=== PATIENT | female | born 1935 | race Caucasian/White ===

== ENCOUNTER 2018-05-22 21:51 | Emergency (ER) | payer MEDICARE, MEDICAID ==
[~2018-05-22] VITALS: Ht 152.4 cm; Wt 59.0 kg
[2018-05-22 21:56] VITALS: BP_SYST 204
[2018-05-22 23:00] VITALS: BP_SYST 188
== END 2018-05-22 23:00 | disposition home or self-care (01) ==
LOC: SED 21:51
DX: I10 Essential (primary) hypertension (principal); E11.9 Type 2 diabetes mellitus without complications; R42 Dizziness and giddiness
CPT/HCPCS: 99283

== ENCOUNTER 2018-05-25 15:05 | Emergency (ER) | payer MEDICARE, MEDICAID ==
[~2018-05-25] VITALS: Ht 149.9 cm; Wt 63.5 kg
[2018-05-25 15:08] VITALS: BP_SYST 194
[2018-05-25] MEDS ORDERED: cloNIDine HCL 0.1 MG TABLET PO ONE (16:00)
[2018-05-25 16:49] VITALS: BP_SYST 150
== END 2018-05-25 16:49 | disposition home or self-care (01) ==
LOC: SED 15:05
DX: I10 Essential (primary) hypertension (principal); E11.9 Type 2 diabetes mellitus without complications
CPT/HCPCS: 99283

== ENCOUNTER 2018-07-15 11:03 | Inpatient (IN) | payer MEDICAID, MEDICARE ==
[~2018-07-15] VITALS: Ht 160 cm; Wt 60.8 kg
[2018-07-15 11:05] VITALS: BP_SYST 169
[2018-07-15 12:00] LABS: BILIRUBIN,URINE NEGATIVE (NEGATIVE); BLOOD, URINE NEGATIVE (NEGATIVE); CLARITY/URINE SL HAZY (CLEAR); COLOR,URINE YELLOW (YELLOW); GLUCOSE,URINE NEGATIVE (NEGATIVE); KETONES,URINE 1+ (NEGATIVE); LEUKOCYTE ESTERASE ,URINE NEGATIVE (NEGATIVE); NITRITE, URINE NEGATIVE (NEGATIVE); PROTEIN URINE TRACE (NEGATIVE); UROBILINOGEN,URINE 0.2 (0.2-1.0)
[2018-07-15 12:11] LABS: BASOPHILS % (AUTO) 0.3 % (0.0-2.0); EOSINOPHILS # (AUTO) 0.1 K/uL (0.0-0.4); EOSINOPHILS % (AUTO) 0.9 % (0.0-4.0); HEMATOCRIT 39.5 % (36-48); HEMOGLOBIN 13.2 g/dL (12.0-16.0); LYMPHOCYTES # (AUTO) 1.3 K/uL (1.0-5.5); LYMPHOCYTES % (AUTO) 20.9 % (20.5-51.5); MEAN CORPUSCULAR HEMOGLOBIN 31 pg (27-31); MEAN CORPUSCULAR HGB CONC 33 % (32-36); MEAN CORPUSCULAR VOLUME 93 fL (79.0-98.0); MONOCYTES # (AUTO) 0.4 K/uL (0.0-1.0); MONOCYTES % (AUTO) 6.5 % (1.7-9.3); NEUTROPHILS # (AUTO) 4.6 K/uL (1.8-7.7); NEUTROPHILS % (AUTO) 71.4 % (40.0-70.0); PLATELET COUNT (AUTO) 220 K/uL (130-430); RED BLOOD CELL COUNT(AUTO) 4.23 MIL/uL (4.2-6.2); RED CELL DISTRIBUTION WIDTH 12.5 % (9.0-15.0); WHITE BLOOD COUNT (AUTO) 6.4 K/uL (4.8-10.8)
[2018-07-15 12:12] LABS: BACTERIA,URINE RARE /HPF (None Seen); RBC,URINE NONE SEEN /HPF (0-3); WBC,URINE 0-3 /HPF (0-3)
[2018-07-15 12:13] LABS: ANION GAP 11 (5-15); CHLORIDE 100 mmol/L (98-107); CREATININE 1.03 mg/dL (0.55-1.30); GLUCOSE 182 mg/dL (70-99); POTASSIUM 3.4 mmol/L (3.5-5.1); SODIUM SERUM 135 mmol/L (136-145); UREA NITROGEN, BLOOD 18 mg/dL (8-21)
[2018-07-15 12:18] LABS: ALANINE AMINOTRANSFERASE 19 U/L (12-78); ALBUMIN 3.8 g/dL (3.4-4.8); ASPARTATE AMINOTRANSFERASE 21 U/L (10-37); PROTHROMBIN TIME 9.9 SECS (9.5-12.5); TOTAL BILIRUBIN 0.6 mg/dL (0.0-1.0)
[2018-07-15] MEDS ORDERED: ASPIRIN 325 MG TABLET PO ONE (13:15)
[2018-07-15] MEDS ORDERED: LISI40TA4 PO (13:52)
[2018-07-15] MEDS ORDERED: SITA1TAB6 PO (13:52)
[2018-07-15 14:55] VITALS: BP_SYST 155
[2018-07-15] MEDS: KCL 20 mEq in 0.45% NS 1000 mL 1,000 ML IV SCH (15:30)
[2018-07-15 16:00] VITALS: BP_SYST 145
[2018-07-15] MEDS ORDERED: INSULIN REGULAR, HUMAN 100 UNITS/ML, 10 ML VIAL (novoLIN R) SUBCUT PRN (18:00)
[2018-07-15] MEDS ORDERED: D5W 1,000 ML IV PRN (20:00)
[2018-07-15] MEDS ORDERED: DEXTROSE 50%-WATER 50 ML DISP.SYRIN IVP PRN (20:00)
[2018-07-15] MEDS ORDERED: GLUCOSE 15 GM GEL (in 37.5 GM TUBE) PO PRN (20:00)
[2018-07-15 20:46] VITALS: BP_SYST 177
[2018-07-15] MEDS: GABAPENTIN 100 MG CAPSULE PO SCH (20:50)
[2018-07-15] MEDS: INSULIN REGULAR, HUMAN 100 UNITS/ML, 10 ML VIAL (novoLIN R) SUBCUT PRN (20:57)
[2018-07-16] VITALS: BP_SYST 163
[2018-07-16 02:41] VITALS: BP_SYST 165
[2018-07-16] MEDS: KCL 20 mEq in 0.45% NS 1000 mL 1,000 ML IV SCH ×2 (03:46→17:22)
[2018-07-16] MEDS: KETOROLAC TROMETHAMINE 15 MG VIAL IVP PRN ×2 (06:14→17:53)
[2018-07-16] MEDS: INSULIN REGULAR, HUMAN 100 UNITS/ML, 10 ML VIAL (novoLIN R) SUBCUT PRN ×4 (06:21→21:19)
[2018-07-16 08:36] VITALS: BP_SYST 162
[2018-07-16] MEDS: GABAPENTIN 100 MG CAPSULE PO SCH ×2 (08:39→21:14)
[2018-07-16] MEDS: ASPIRIN 81 MG TAB.CHEW PO SCH (08:39)
[2018-07-16] MEDS: LISINOPRIL 20 MG TABLET PO SCH (08:39)
[2018-07-16] MEDS: ENOXAPARIN SODIUM 40 MG/0.4 ML SYRINGE SUBCUT SCH (08:40)
[2018-07-16 13:03] VITALS: BP_SYST 159
[2018-07-16 17:14] VITALS: BP_SYST 164
[2018-07-16] MEDS ORDERED: CELECOXIB 100 MG CAPSULE PO ONE (19:42)
[2018-07-16 21:09] VITALS: BP_SYST 166
[2018-07-17] MEDS: KCL 20 mEq in 0.45% NS 1000 mL 1,000 ML IV SCH ×2 (06:00→21:25)
[2018-07-17] MEDS: INSULIN REGULAR, HUMAN 100 UNITS/ML, 10 ML VIAL (novoLIN R) SUBCUT PRN ×4 (06:15→21:49)
[2018-07-17] MEDS: LISINOPRIL 20 MG TABLET PO SCH (09:42)
[2018-07-17] MEDS: ASPIRIN 81 MG TAB.CHEW PO SCH (09:42)
[2018-07-17] MEDS: GABAPENTIN 100 MG CAPSULE PO SCH ×2 (09:42→21:21)
[2018-07-17] MEDS: CELECOXIB 100 MG CAPSULE PO SCH (09:42)
[2018-07-17] MEDS: ENOXAPARIN SODIUM 40 MG/0.4 ML SYRINGE SUBCUT SCH (09:43)
[2018-07-17 12:26] VITALS: BP_SYST 162
[2018-07-17 16:26] VITALS: BP_SYST 167
[2018-07-17] MEDS ORDERED: SENNOSIDES 8.6 MG TABLET PO ONE (19:45)
[2018-07-17 20:10] VITALS: BP_SYST 166
[2018-07-17] MEDS: cloNIDine HCL 0.1 MG TABLET PO PRN (21:25)
[2018-07-18 00:04] VITALS: BP_SYST 146
[2018-07-18] MEDS: INSULIN REGULAR, HUMAN 100 UNITS/ML, 10 ML VIAL (novoLIN R) SUBCUT PRN ×4 (06:51→21:11)
[2018-07-18 08:00] VITALS: BP_SYST 151
[2018-07-18] MEDS: ASPIRIN 81 MG TAB.CHEW PO SCH (10:14)
[2018-07-18] MEDS: LISINOPRIL 20 MG TABLET PO SCH (10:14)
[2018-07-18] MEDS: CELECOXIB 100 MG CAPSULE PO SCH (10:14)
[2018-07-18] MEDS: GABAPENTIN 100 MG CAPSULE PO SCH ×2 (10:15→20:58)
[2018-07-18] MEDS: ENOXAPARIN SODIUM 40 MG/0.4 ML SYRINGE SUBCUT SCH (10:16)
[2018-07-18] MEDS: KCL 20 mEq in 0.45% NS 1000 mL 1,000 ML IV SCH (10:23)
[2018-07-18 12:02] VITALS: BP_SYST 155
[2018-07-18 16:02] VITALS: BP_SYST 123
[2018-07-18 20:00] VITALS: BP_SYST 178
[2018-07-18] MEDS: cloNIDine HCL 0.1 MG TABLET PO PRN (20:58)
[2018-07-18] MEDS: traMADol HCL HCL 50 MG TABLET (ULTRAM) PO PRN (21:03)
[2018-07-19] MEDS: KCL 20 mEq in 0.45% NS 1000 mL 1,000 ML IV SCH ×2 (00:41→14:08)
[2018-07-19 02:45] VITALS: BP_SYST 149
[2018-07-19] MEDS: INSULIN REGULAR, HUMAN 100 UNITS/ML, 10 ML VIAL (novoLIN R) SUBCUT PRN ×3 (06:25→20:51)
[2018-07-19 08:00] VITALS: BP_SYST 146
[2018-07-19] MEDS: CELECOXIB 100 MG CAPSULE PO SCH (08:56)
[2018-07-19] MEDS: GABAPENTIN 100 MG CAPSULE PO SCH ×2 (08:56→20:40)
[2018-07-19] MEDS: ASPIRIN 81 MG TAB.CHEW PO SCH (08:57)
[2018-07-19] MEDS: LISINOPRIL 20 MG TABLET PO SCH (08:57)
[2018-07-19] MEDS: ENOXAPARIN SODIUM 40 MG/0.4 ML SYRINGE SUBCUT SCH (08:58)
[2018-07-19 11:20] VITALS: BP_SYST 161
[2018-07-19 16:35] VITALS: BP_SYST 142
[2018-07-19 19:51] VITALS: BP_SYST 212
[2018-07-19] MEDS: traMADol HCL HCL 50 MG TABLET (ULTRAM) PO PRN (20:57)
[2018-07-19] MEDS: cloNIDine HCL 0.1 MG TABLET PO PRN (21:00)
[2018-07-20 01:35] VITALS: BP_SYST 160
[2018-07-20] MEDS: KCL 20 mEq in 0.45% NS 1000 mL 1,000 ML IV SCH ×2 (04:54→17:04)
[2018-07-20] MEDS: INSULIN REGULAR, HUMAN 100 UNITS/ML, 10 ML VIAL (novoLIN R) SUBCUT PRN ×3 (06:54→20:56)
[2018-07-20 07:30] VITALS: BP_SYST 142
[2018-07-20 07:46] LABS: ANION GAP 10 (5-15); CALCIUM 9.2 mg/dL (8.4-11.0); CHLORIDE 104 mmol/L (98-107); CREATININE 0.94 mg/dL (0.55-1.30); GLUCOSE 180 mg/dL (70-99); POTASSIUM 4.1 mmol/L (3.5-5.1); SODIUM SERUM 137 mmol/L (136-145); UREA NITROGEN, BLOOD 19 mg/dL (8-21)
[2018-07-20 07:48] LABS: BASOPHILS % (AUTO) 0.6 % (0.0-2.0); EOSINOPHILS # (AUTO) 0.3 K/uL (0.0-0.4); EOSINOPHILS % (AUTO) 4.4 % (0.0-4.0); HEMATOCRIT 33.3 % (36-48); HEMOGLOBIN 11.5 g/dL (12.0-16.0); LYMPHOCYTES # (AUTO) 1.5 K/uL (1.0-5.5); LYMPHOCYTES % (AUTO) 24.1 % (20.5-51.5); MEAN CORPUSCULAR HEMOGLOBIN 34 pg (27-31); MEAN CORPUSCULAR HGB CONC 35 % (32-36); MEAN CORPUSCULAR VOLUME 97 fL (79.0-98.0); MONOCYTES # (AUTO) 0.4 K/uL (0.0-1.0); MONOCYTES % (AUTO) 7.2 % (1.7-9.3); NEUTROPHILS # (AUTO) 3.9 K/uL (1.8-7.7); NEUTROPHILS % (AUTO) 63.7 % (40.0-70.0); PLATELET COUNT (AUTO) 193 K/uL (130-430); RED BLOOD CELL COUNT(AUTO) 3.43 MIL/uL (4.2-6.2); RED CELL DISTRIBUTION WIDTH 12.3 % (9.0-15.0); WHITE BLOOD COUNT (AUTO) 6.1 K/uL (4.8-10.8)
[2018-07-20] MEDS: CELECOXIB 100 MG CAPSULE PO SCH (08:08)
[2018-07-20] MEDS: LISINOPRIL 20 MG TABLET PO SCH (08:10)
[2018-07-20] MEDS: GABAPENTIN 100 MG CAPSULE PO SCH ×2 (08:11→20:47)
[2018-07-20] MEDS: ASPIRIN 81 MG TAB.CHEW PO SCH (08:11)
[2018-07-20] MEDS: ENOXAPARIN SODIUM 40 MG/0.4 ML SYRINGE SUBCUT SCH (08:12)
[2018-07-20 12:16] VITALS: BP_SYST 138
[2018-07-20 16:05] VITALS: BP_SYST 147
[2018-07-20 19:45] VITALS: BP_SYST 187
[2018-07-20] MEDS: traMADol HCL HCL 50 MG TABLET (ULTRAM) PO PRN (20:48)
[2018-07-21] VITALS (7 sets, daily range): BP systolic 120–162
[2018-07-21] MEDS: KCL 20 mEq in 0.45% NS 1000 mL 1,000 ML IV SCH (06:20)
[2018-07-21] MEDS: INSULIN REGULAR, HUMAN 100 UNITS/ML, 10 ML VIAL (novoLIN R) SUBCUT PRN ×4 (06:25→21:25)
[2018-07-21] MEDS: GABAPENTIN 100 MG CAPSULE PO SCH ×2 (09:05→21:24)
[2018-07-21] MEDS: LISINOPRIL 20 MG TABLET PO SCH (09:05)
[2018-07-21] MEDS: CELECOXIB 100 MG CAPSULE PO SCH (09:05)
[2018-07-21] MEDS: ASPIRIN 81 MG TAB.CHEW PO SCH (09:05)
[2018-07-21] MEDS: ENOXAPARIN SODIUM 40 MG/0.4 ML SYRINGE SUBCUT SCH (09:06)
[2018-07-21] MEDS: cloNIDine HCL 0.1 MG TABLET PO PRN (21:24)
[2018-07-21] MEDS: NORMAL SALINE 5 ML DISP.SYRIN IVF SCH ×2 (22:00→23:17)
[2018-07-22] VITALS: BP_SYST 153
[2018-07-22] MEDS: NORMAL SALINE 5 ML DISP.SYRIN IVF SCH ×3 (06:05→22:00)
[2018-07-22] MEDS: INSULIN REGULAR, HUMAN 100 UNITS/ML, 10 ML VIAL (novoLIN R) SUBCUT PRN ×4 (06:08→20:44)
[2018-07-22 08:35] VITALS: BP_SYST 133
[2018-07-22] MEDS: GABAPENTIN 100 MG CAPSULE PO SCH ×2 (08:40→20:42)
[2018-07-22] MEDS: LISINOPRIL 20 MG TABLET PO SCH (08:40)
[2018-07-22] MEDS: CELECOXIB 100 MG CAPSULE PO SCH (08:41)
[2018-07-22] MEDS: ASPIRIN 81 MG TAB.CHEW PO SCH (08:41)
[2018-07-22] MEDS: ENOXAPARIN SODIUM 40 MG/0.4 ML SYRINGE SUBCUT SCH (08:41)
[2018-07-22] MEDS: cloNIDine HCL 0.1 MG TABLET PO PRN (11:25)
[2018-07-22 12:01] VITALS: BP_SYST 164
[2018-07-22 16:42] VITALS: BP_SYST 171
[2018-07-23 00:34] VITALS: BP_SYST 161
[2018-07-23] MEDS: NORMAL SALINE 5 ML DISP.SYRIN IVF SCH ×2 (05:26→13:57)
[2018-07-23] MEDS: INSULIN REGULAR, HUMAN 100 UNITS/ML, 10 ML VIAL (novoLIN R) SUBCUT PRN ×2 (06:04→11:40)
[2018-07-23] MEDS: CELECOXIB 100 MG CAPSULE PO SCH (08:35)
[2018-07-23] MEDS: LISINOPRIL 20 MG TABLET PO SCH (08:36)
[2018-07-23] MEDS: GABAPENTIN 100 MG CAPSULE PO SCH (08:36)
[2018-07-23] MEDS: ASPIRIN 81 MG TAB.CHEW PO SCH (08:36)
[2018-07-23] MEDS: ENOXAPARIN SODIUM 40 MG/0.4 ML SYRINGE SUBCUT SCH (08:37)
[2018-07-23 08:43] VITALS: BP_SYST 141
[2018-07-23 12:00] VITALS: BP_SYST 164
[2018-07-23] MEDS: cloNIDine HCL 0.1 MG TABLET PO PRN (12:16)
[2018-07-23 15:38] VITALS: BP_SYST 151
[2018-07-23 17:35] VITALS: BP_SYST 151
== END 2018-07-23 18:47 | DRG 347 ==
LOC: SED 11:03 → STU 13:34 → SMU 07-17 19:11
PROVIDERS: ADMIT Family Medicine; ATTEND Family Medicine
DX: M48.02 Spinal stenosis, cervical region (principal); E11.42 Type 2 diabetes mellitus with diabetic polyneuropathy; K57.90 Diverticulosis of intestine, part unspecified, without perforation or abscess without bleeding; M19.90 Unspecified osteoarthritis, unspecified site; M50.321 Other cervical disc degeneration at C4-C5 level; M50.322 Other cervical disc degeneration at C5-C6 level; M50.31 Other cervical disc degeneration, high cervical region; R29.6 Repeated falls; I10 Essential (primary) hypertension; Z88.0 Allergy status to penicillin
CPT/HCPCS: 36415; 70450-TC; 71045; 72141; 80048; 80053; 81000-TC; 82550-TC; 82962; 83880; 84484; 85025; 85610-TC; 85651-TC; 85730-TC; 93005; 97110-GP; 97116-GP; 97163; 97530-GP; 99285; G0378; J1650; J1815; J1885; J3480

== ENCOUNTER 2021-12-29 20:49 | Inpatient (IN) | payer OTHER, MEDICAID ==
[~2021-12-29] VITALS: Ht 160 cm; Wt 65.4 kg
[2021-12-29 20:49] VITALS: BP_SYST 189
[~2021-12-29 20:49] MED LIST: LISI40TA13 PO; SITA1TAB6 PO
--- NOTE | 2021-12-29 21:50 | NUR ---
86 YR OLD AOX4, [place] CITIZEN SPEAKING FEMALE BROUGHT IN BY [facility]AEDICS WITH COMPLAINT OF SOB WITH AUDIBLE WHEEZING. PT ARRIVED TO ER WITH AN 18G IV IN THE LEFT HAND ON A CPAP AND RECIEVED 5 G OF ALBUTEROL IN ROUTE. PT IS TACHYPNIC AND STATES SHE DOENST KNOW WHEN THE DIFFICULTY BREATHING STARTED. PT PLACED ON OPHTHALMIC TECHNICIAN ,RT AT THE BEDSIDE.
--- NOTE | 2021-12-29 21:51 | NUR ---
COVID19 QUINN SWAB SENT TO LAB
[2021-12-29 22:48] LABS: ANION GAP 20 (5-15); CALCIUM 8.1 mg/dL (8.4-11.0); CHLORIDE 105 mmol/L (98-107); CREATININE 2.15 mg/dL (0.55-1.30); GLUCOSE 366 mg/dL (70-99); POTASSIUM 4.4 mmol/L (3.5-5.1); SODIUM SERUM 137 mmol/L (136-145); UREA NITROGEN, BLOOD 57 mg/dL (8-21)
[2021-12-29 22:56] LABS: BASOPHILS % (AUTO) 0.3 % (0.0-2.0); HEMOGLOBIN 9.5 g/dL (12.0-16.0); LYMPHOCYTES % (AUTO) 7.4 % (20.5-51.5); MEAN CORPUSCULAR HEMOGLOBIN 31 pg (27-31); MEAN CORPUSCULAR HGB CONC 33 % (32-36); MEAN CORPUSCULAR VOLUME 96 fL (79.0-98.0); MONOCYTES # (AUTO) 0.5 K/uL (0.0-1.0); MONOCYTES % (AUTO) 4.1 % (1.7-9.3); NEUTROPHILS # (AUTO) 11.9 K/uL (1.8-7.7); NEUTROPHILS % (AUTO) 88.2 % (40.0-70.0); PLATELET COUNT (AUTO) 207 K/uL (130-430); RED BLOOD CELL COUNT(AUTO) 3.04 MIL/uL (4.2-6.2); RED CELL DISTRIBUTION WIDTH 13.7 % (9.0-15.0); WHITE BLOOD COUNT (AUTO) 13.5 K/uL (4.8-10.8)
[2021-12-29 22:57] LABS: ALANINE AMINOTRANSFERASE 25 U/L (12-78); ALBUMIN 3.4 g/dL (3.4-4.8); ASPARTATE AMINOTRANSFERASE 24 U/L (10-37); TOTAL BILIRUBIN 0.8 mg/dL (0.0-1.0)
[2021-12-29] MEDS ORDERED: ASPIRIN 325 MG TABLET PO ONE (23:15)
[2021-12-30] VITALS (40 sets, daily range): BP systolic 0–169
[2021-12-30] MEDS ORDERED: DOPamine PREMIX 250 ML IV ONE ×5 (00:15→17:32)
[2021-12-30] MEDS ORDERED: CLINDAMYCIN 900 mg/50mL D5W 50 ML IV ONE (00:45)
[2021-12-30] MEDS ORDERED: NITROGLYCERIN 1 INCH (GM) OINT. TP ONE (00:45)
[2021-12-30] MEDS ORDERED: AZITHROMYCIN 250 MG TABLET PO ONE (00:45)
[2021-12-30] MEDS ORDERED: FUROSEMIDE 40 MG/4 ML VIAL IVP ONE (00:45)
[2021-12-30] MEDS ORDERED: ONDANSETRON HCL 4 MG/2 ML VIAL ONE (01:57)
[2021-12-30] MEDS ORDERED: ONDANSETRON HCL 4 MG/2 ML VIAL IVP ONE (02:00)
--- NOTE | 2021-12-30 02:30 | NUR ---
RECEIVED PATIENT FROM ER NURSE KELVIN. PATIENT IS AWAKE AND ON BIPAP. SETTINGS ARE 12/6, 100%, RATE OF 16. PATIENT HAS A LEFT HAND 18g THAT IS SALINE LOCKED AND A RIGHT FEMORAL CENTRAL LINE WITH DOPAMINE RUNNING AT 10 MCG/KG/MIN. PATIENT HR IS 48, BP 134/48, TEMP IS 97.6 TEMPORAL, AND RESPIRATIONS ARE 18. PATIENT SPEAKS ONLY GEORGIAN AND AN NEUROLOGY TECHNICIAN WAS USED IN ER. PATIENT HAS A DUNN THAT IS DRAINING. BED IS AT THE LOWEST LEVEL, BRAKES ARE LOCKED, CALL LIGHT IS WITHIN REACH, SUCTION WORKING, AND APPROPRIATE SIDE RAILS UP.
--- NOTE | 2021-12-30 02:42 | NUR ---
BEDSIDE REPORT GIVEN TO DESMOND FOX FOR ICU ADMISSION
--- NOTE | 2021-12-30 06:31 | NUR ---
NOTIFIED OF CONSULT REASON FOR CONSULT: PNEUMONIA DIALED: [phone] SPOKE TO: HAI
[2021-12-30] MEDS ORDERED: FUROSEMIDE 20 MG/2 ML VIAL IVP SCH (07:00)
--- NOTE | 2021-12-30 07:05 | NUR ---
DR ROSS DID ROUNDS, SAID PATIENT LOOKED GOOD AND TO TAKE HER OFF BIPAP WHEN SHE EATS AND ASSESS HOW SHE DOES.
--- NOTE | 2021-12-30 07:24 | NUR ---
RT NOTES FIO2 TO 0.60 PER TITRATION ORDER. WILL NOTIFY RN.
--- NOTE | 2021-12-30 07:30 | NUR ---
Recd pt on bipap 06/25, pt arousable to verbal stimulus, guamanian speaking only, 3'AVB rate 47. On dopamine gtt. AM assessment done and charted. HOB at 30'. Right femoral TLC with drsg clean and dry. Placed pt on oxymiser at 6L nasal prong to provide pt with breakfast, pt ate very little and after 1 hour replaced bipap on pt. Dr Reddy at the bedside, aware of HR 42. Left detailed msg to son Kenyon but no call back yet. Dr Reddy also left msg for son but no call back yet. Will continue to monitor pt closely.
[2021-12-30] MEDS ORDERED: DOPamine PREMIX 250 ML IV PRN (07:45)
--- NOTE | 2021-12-30 07:47 | NUR ---
RT NOTES Took pt off of BIPAP for breakfast, placed on 6L oxymizer. Will monitor pt. @0808 H.R 47 RR27 Sat 92%. Per Dr Reddy, put pt back on Bipap after HHN tx. Addendum: 12/30/21 at 0824 by Mayda Romero RT PUT PT BACK ON BIPAP AFTER BREAKFAST
[2021-12-30] MEDS ORDERED: FUROSEMIDE 40 MG/4 ML VIAL ONE (08:09)
--- NOTE | 2021-12-30 08:21 | NUR ---
RT NOTES Per RN peggy Jaimes to put pt. back on BiPap now. Same settings 06/25 BUR 16, 60%.
[2021-12-30 08:37] LABS: ANION GAP 22 (5-15); CALCIUM 7.9 mg/dL (8.4-11.0); CHLORIDE 99 mmol/L (98-107); CREATININE 3.31 mg/dL (0.55-1.30); POTASSIUM 5.6 mmol/L (3.5-5.1); SODIUM SERUM 132 mmol/L (136-145); UREA NITROGEN, BLOOD 71 mg/dL (8-21)
[2021-12-30 08:39] LABS: HEMATOCRIT 26.1 % (36-48); HEMOGLOBIN 8.5 g/dL (12.0-16.0); LYMPHOCYTES # (AUTO) 0.9 K/uL (1.0-5.5); LYMPHOCYTES % (AUTO) 6.7 % (20.5-51.5); MEAN CORPUSCULAR HEMOGLOBIN 31 pg (27-31); MEAN CORPUSCULAR HGB CONC 33 % (32-36); MEAN CORPUSCULAR VOLUME 96 fL (79.0-98.0); MONOCYTES # (AUTO) 0.9 K/uL (0.0-1.0); MONOCYTES % (AUTO) 6.6 % (1.7-9.3); NEUTROPHILS # (AUTO) 11.9 K/uL (1.8-7.7); NEUTROPHILS % (AUTO) 86.7 % (40.0-70.0); PLATELET COUNT (AUTO) 222 K/uL (130-430); RED BLOOD CELL COUNT(AUTO) 2.72 MIL/uL (4.2-6.2); RED CELL DISTRIBUTION WIDTH 13.6 % (9.0-15.0); WHITE BLOOD COUNT (AUTO) 13.7 K/uL (4.8-10.8)
[2021-12-30 08:40] LABS: ALANINE AMINOTRANSFERASE 36 U/L (12-78); ALBUMIN 3.3 g/dL (3.4-4.8); TOTAL BILIRUBIN 0.6 mg/dL (0.0-1.0)
[2021-12-30 08:53] LABS: GLUCOSE 697 mg/dL (70-99)
[2021-12-30 08:54] LABS: ASPARTATE AMINOTRANSFERASE 41 U/L (10-37)
[2021-12-30] MEDS ORDERED: cefTRIAXone 1 GM VIAL IM SCH (09:00)
[2021-12-30] MEDS ORDERED: ENOXAPARIN SODIUM 30 MG/0.3 ML SYRINGE SUBCUT SCH (09:00)
--- NOTE | 2021-12-30 09:00 | NUR ---
RT NOTES Responded to code blue, upon arrival, ROSC already established, pt was spontaneouly breathing, pt was being ventilated with 100% O2 via bag/mask, per Dr Alves, change to NRM. @0915 pt. was intubated with 7.0 ETT secured at 22cm. Bilateral b/s/chest rise noted. Calorimetric changed to yellow, misting noted in ETT confirming placement. Placed pt on vent AC 16 400 100% +[address] Alves. Sputum collected to be endorsed to lab. Alarms are set and audible at nurse's station, vent to red outlet, resus. bag remains at bedside. Changed settings changed to AC [address] Red[address]. Pt. appears to be tolerating settings well. Will monitor pt. Will draw ABG.
[2021-12-30] MEDS ORDERED: PROPOFOL DRIP 100 ML IV ONE (09:29)
--- NOTE | 2021-12-30 09:54 | NUR ---
PAGED DR. ROSS FOR ORDERS SECOND ATTEMPT DIALED: [phone] SPOKE TO: AUTOMATED PAGED
[2021-12-30] MEDS ORDERED: PROPOFOL DRIP 100 ML IV PRN (10:00)
[2021-12-30] MEDS ORDERED: DEXTROSE 50% JECT 50 ML DISP.SYRIN IVP PRN (10:15)
[2021-12-30] MEDS ORDERED: NALOXONE HCL 0.4 MG/ML AMP (NARCAN) IVP PRN (10:15)
[2021-12-30] MEDS ORDERED: SODIUM POLYSTYRENE SULFONATE 15 GM/60 ML UDBTL PO ONE (10:30)
--- NOTE | 2021-12-30 10:30 | NUR ---
At 09:00, pt went asystole, I was present at the bedside, Code blue called, CPR initiated immediately, epi given, see Code Blue Sheet. FAN JACKSON at the bedside and Dr Reddy at the bedside during code. Pt was intubated and Post ABG done and chest xray confirmed placement. Bilateral wrist restraints placed, seen pt attempting to pull ETT. Continue to monitor.
--- NOTE | 2021-12-30 10:35 | NUR ---
Recieved phone call from kasandra Marrero [phone], and updated on pts' critical condition. All questions answered and addressed. He states son Kenyon will be out of the country for 2 weeks. Encouraged family member to visit pt and will call him if any changes.
[2021-12-30] MEDS ORDERED: SODIUM POLYSTYRENE SULFONATE 15 GM/60 ML UDBTL RC ONE (10:45)
[2021-12-30] MEDS ORDERED: SODIUM BICARBONATE 8.4% JECT 50 MEQ/50 ML SYRINGE IVP ONE (10:45)
[2021-12-30] MEDS: NACL 0.9% 1,000 ML IV SCH ×2 (10:52→23:50)
[2021-12-30] MEDS: CEFTRIAXONE SOD 1 GM/ D5W 50 ML IV SCH ×2 (11:00)
--- NOTE | 2021-12-30 11:06 | NUR ---
PAGED FOR ORDER 3RD ATTEMPT DIALED: [phone] SPOKE TO: JESUS
--- NOTE | 2021-12-30 11:21 | NUR ---
RT NOTES FIO2 TO 0.80. NO ADVERSE REACTIONS NOTED. WILL MONITOR PT. RN MADE AWARE.
--- NOTE | 2021-12-30 11:23 | NUR ---
NOTIFIED FOR CONSULT STAT CONSULT ORDERING PHY: REASON FOR CONSULT: CARDIAC ARREST DIALED: [phone] SPOKE TO:
[2021-12-30] MEDS: MIDAZOLAM IN NACL,ISO-OSMOT/PF 100 ML IV PRN (11:45)
[2021-12-30] MEDS: MORPHINE SULFATE IN 0.9 % NACL 100 ML IV PRN (11:46)
[2021-12-30] MEDS: INSULIN REGULAR, HUMAN 100 UNITS in NS 99 ML IV PRN ×4 (12:10→20:40)
[2021-12-30 12:48] LABS: BILIRUBIN,URINE 1+ (NEGATIVE); BLOOD, URINE 2+ (NEGATIVE); COLOR,URINE YELLOW (YELLOW); GLUCOSE,URINE 1+ (NEGATIVE); KETONES,URINE TRACE (NEGATIVE); LEUKOCYTE ESTERASE ,URINE NEGATIVE (NEGATIVE); NITRITE, URINE NEGATIVE (NEGATIVE); PH,URINE 5.5 (5.0-8.0); PROTEIN URINE 3+ (NEGATIVE)
[2021-12-30 12:52] LABS: CLARITY/URINE HAZY (CLEAR)
[2021-12-30 13:03] LABS: ANION GAP 29 (5-15); CALCIUM 7.3 mg/dL (8.4-11.0); CHLORIDE 97 mmol/L (98-107); CREATININE 3.84 mg/dL (0.55-1.30); POTASSIUM 4.7 mmol/L (3.5-5.1); SODIUM SERUM 133 mmol/L (136-145); UREA NITROGEN, BLOOD 76 mg/dL (8-21)
[2021-12-30 13:06] LABS: BACTERIA,URINE MODERATE /HPF (None Seen); MUCUS,URINE 1+ /LPF (None Seen); WBC,URINE 0-3 /HPF (0-3)
--- NOTE | 2021-12-30 13:12 | NUR ---
Received call from lab with glucose of 840. Call out to Dr. Ly to ask about an endocrinology consult.
[2021-12-30 13:13] LABS: GLUCOSE 840 mg/dL (70-99)
--- NOTE | 2021-12-30 13:25 | NUR ---
Call out to Dr. Sharif regarding glucose of 840/CO2 7.
--- NOTE | 2021-12-30 13:30 | NUR ---
2nd call out to Dr. Ly regarding glucose of 840.
--- NOTE | 2021-12-30 13:40 | NUR ---
Call out to Dr. Sharif regarding blood sugar of 840.
--- NOTE | 2021-12-30 13:56 | NUR ---
NOTIFIED OF CONSULT Isaias BENITEZ ORDERING PHY: REASON FOR CONSULT: DKArabella DIALED: [phone] SPOKE TO: NO ANSWER, LEFT MESSAGE ON VOICEMAIL
--- NOTE | 2021-12-30 13:59 | NUR ---
Spoke with Dr. Sharif regarding blood sugar of 840 and CO2 of 7. Orders left. NS bolus started.
--- NOTE | 2021-12-30 14:04 | NUR ---
Spoke with Dr. Ly and updated him on pt's condition / s/p code blue, vent, sedation. Informed him of current glucose/CO results. Orders left for endocrine consult. Call out to Dr. Spaulding.
--- NOTE | 2021-12-30 14:05 | NUR ---
Grand-daughter at the bedside, Kerrie Martinez , she states she lives closeby. She provided Leigh Langford (son) #[phone] and Wagner Langford (son) # [phone]. Provided update on pts' condition and critical prognosis.
--- NOTE | 2021-12-30 14:11 | NUR ---
Spoke with Dr. Atkins Sayed on the phone regarding consult. Questions answered. Ordered the following and bedside RN made aware. Continue NS bolus as previously ordered by Dr. Sharif NS at 75cc/hr after bolus Regular insulin 25u IVP now Decrease insulin drip to 10u/hr Accucheck q1 if Accucheck is trending downward- once reaches 250 please call me. if Acucheck is not trending downward in 2 hours and remains high, call me.
[2021-12-30] MEDS ORDERED: NACL 0.9% 1,000 ML IV ONE (14:30)
[2021-12-30] MEDS ORDERED: INSULIN REGULAR, HUMAN 100 UNITS/ML, 10 ML VIAL IV ONE (14:30)
[2021-12-30] MEDS ORDERED: ETOMIDATE 20 MG/ 10 ML VIAL (AMIDATE) IVP ONE (14:43)
[2021-12-30] MEDS ORDERED: SUCCINYLCHOLINE CHLORIDE 20 MG/ML(QUELICIN) IVP ONE (14:43)
[2021-12-30 14:57] LABS: ANION GAP 28 (5-15); CALCIUM 7.1 mg/dL (8.4-11.0); CHLORIDE 99 mmol/L (98-107); CREATININE 4.07 mg/dL (0.55-1.30); POTASSIUM 4.2 mmol/L (3.5-5.1); SODIUM SERUM 134 mmol/L (136-145); UREA NITROGEN, BLOOD 76 mg/dL (8-21)
[2021-12-30] MEDS: EPINEPHrine HCL 10 MG in NS 240 ML IV PRN (14:57)
[2021-12-30 15:28] LABS: GLUCOSE 860 mg/dL (70-99)
--- NOTE | 2021-12-30 15:52 | NUR ---
RT NOTES FIO2 TO 0.60 PER TITRATION ORDER. NO ADVERSE REACTIONS NOTED. WILL MONITOR PT. RN MADE AWARE.
[2021-12-30 16:40] LABS: ANION GAP 23 (5-15); CHLORIDE 101 mmol/L (98-107); CREATININE 4.11 mg/dL (0.55-1.30); POTASSIUM 3.6 mmol/L (3.5-5.1); SODIUM SERUM 134 mmol/L (136-145); UREA NITROGEN, BLOOD 76 mg/dL (8-21)
[2021-12-30 16:45] LABS: PHOSPHORUS 5.5 mg/dL (2.7-4.5)
[2021-12-30 17:02] LABS: CALCIUM 6.9 mg/dL (8.4-11.0); GLUCOSE 744 mg/dL (70-99)
[2021-12-30 17:08] LABS: ACETONE, SERUM NEGATIVE (NEGATIVE)
[2021-12-30] MEDS: FUROSEMIDE 40 MG/4 ML VIAL IVP SCH (17:26)
[2021-12-30] MEDS ORDERED: INSULIN REGULAR, HUMAN 10 UNITS/0.1 ML INJ IVP ONE (17:30)
--- NOTE | 2021-12-30 23:47 | NUR ---
SPOKE TO DR. QUINTEROS SAYED, AND HE STATED TO LOWER THE INSULIN DRIP RATE FROM 10UNITS/HR TO 6 UNITS/HR IF THE BLOOD SUGAR KEEPS TRENDING DOWN, AND IF THE BLOOD SUGAR ELEVATES HE SAID TO RAISE THE INSULIN DRIP TO 8 UNITS/HR. HE ALSO STATED TO CALL HIM WHEN THE BLOOD SUGAR IS BELOW 250. ALSO HE CANCELLED THE BMP Q4H AND STATED TO JUST DRAW THE NEXT BMP WITH IN THE AM.
[2021-12-31] VITALS (35 sets, daily range): BP systolic 68–154
[2021-12-31] MEDS ORDERED: AZITHROMYCIN 500 MG in NS 250 ML IV SCH ×2
--- NOTE | 2021-12-31 02:16 | NUR ---
CALLED DR QUINTEROS SAYED ABOUT PT BLOOD SUGAR BECAUSE IT WAS 243 AND HE STATED TO KEEP THE INSULIN DRIP AT 1 UNIT/HR AND TO STOP INSULIN DRIP ONCE THE BLOOD SUGAR IS UNDER 150.
[2021-12-31] MEDS: EPINEPHrine HCL 10 MG in NS 240 ML IV PRN (03:32)
[2021-12-31] MEDS: MORPHINE SULFATE IN 0.9 % NACL 100 ML IV PRN (03:32)
[2021-12-31] MEDS ORDERED: DOPAMINE IV ONE (04:01)
--- NOTE | 2021-12-31 04:45 | NUR ---
BLOOD SUGAR WAS 143 INSULIN DRIP TURNED OFF PER DR QUINTEROS SAYED ORDER
[2021-12-31] MEDS: FUROSEMIDE 40 MG/4 ML VIAL IVP SCH ×2 (05:58→18:35)
[2021-12-31] MEDS: MIDAZOLAM IN NACL,ISO-OSMOT/PF 100 ML IV PRN (06:04)
[2021-12-31 06:49] LABS: ANION GAP 17 (5-15); CALCIUM 7.2 mg/dL (8.4-11.0); CHLORIDE 108 mmol/L (98-107); CREATININE 4.34 mg/dL (0.55-1.30); GLUCOSE 131 mg/dL (70-99); POTASSIUM 3.7 mmol/L (3.5-5.1); SODIUM SERUM 142 mmol/L (136-145); UREA NITROGEN, BLOOD 82 mg/dL (8-21)
[2021-12-31 06:50] LABS: BASOPHILS # (AUTO) 0.1 K/uL (0.0-0.2); BASOPHILS % (AUTO) 0.3 % (0.0-2.0); EOSINOPHILS % (AUTO) 0.1 % (0.0-4.0); HEMATOCRIT 25.5 % (36-48); HEMOGLOBIN 8.4 g/dL (12.0-16.0); LYMPHOCYTES # (AUTO) 2.3 K/uL (1.0-5.5); MEAN CORPUSCULAR HEMOGLOBIN 30 pg (27-31); MEAN CORPUSCULAR HGB CONC 33 % (32-36); MEAN CORPUSCULAR VOLUME 93 fL (79.0-98.0); MONOCYTES # (AUTO) 1.6 K/uL (0.0-1.0); MONOCYTES % (AUTO) 6.2 % (1.7-9.3); NEUTROPHILS # (AUTO) 21.8 K/uL (1.8-7.7); NEUTROPHILS % (AUTO) 84.4 % (40.0-70.0); PLATELET COUNT (AUTO) 281 K/uL (130-430); RED BLOOD CELL COUNT(AUTO) 2.76 MIL/uL (4.2-6.2); RED CELL DISTRIBUTION WIDTH 13.3 % (9.0-15.0); WHITE BLOOD COUNT (AUTO) 25.8 K/uL (4.8-10.8)
[2021-12-31 07:04] LABS: ALANINE AMINOTRANSFERASE 43 U/L (12-78); ALBUMIN 2.7 g/dL (3.4-4.8); ASPARTATE AMINOTRANSFERASE 37 U/L (10-37); LIPASE 1795 U/L (73-393); THYROID STIMULATING HORMONE 0.63 uIu/mL (0.36-3.74); TOTAL BILIRUBIN 0.2 mg/dL (0.0-1.0)
[2021-12-31 07:21] LABS: PROTHROMBIN TIME 10.6 SECS (9.5-12.5)
--- NOTE | 2021-12-31 07:52 | NUR ---
RT NOTES FIO2 TO 0.40 PER TITRATION ORDER. NO ADVERSE REACTIONS NOTED. WILL MONITOR PT. RN NOTIFIED. @1490 SAT 95%
--- NOTE | 2021-12-31 08:38 | NUR ---
NOTIFIED FOR CONSULT ZAYDA MAHAN ORDERING PHY: REASON FOR CONSULT: SANTHOSH PLACEMENT DIALED: [phone] SPOKE TO: DR. WILLIS
--- NOTE | 2021-12-31 08:54 | NUR ---
PAGED DR. QUINTEROS-SAYED REGARDING INSULIN & BLOOD SUGAR CHECK ORDERS. ALL ORDERS NOTED AND CARRIED OUT: 1. D/C CURRENT FSBS Q1. START FINGERSTICK BLOOD SUGAR CHECK AC/HS 2. LANTUS 10 UNITS SQ NOW & LANTUS 10 UNITS BID SQ 3. SLIDING SCALE FOR HUMALOG Q6HRS PER PROTOCOL. -KEN COREY RN
[2021-12-31 08:59] LABS: CHOLESTEROL 61 mg/dL (<200); HDL CHOLESTEROL 31 mg/dL (>55); LDL CHOLESTEROL 19 mg/dL (<100); TRIGLYCERIDES 77 mg/dL (30-150)
[2021-12-31] MEDS: CEFTRIAXONE SOD 1 GM/ D5W 50 ML IV SCH ×2 (09:14)
[2021-12-31] MEDS: HEPARIN SODIUM,PORCINE 5,000 UNITS/ML VIAL SUBCUT SCH ×2 (09:15→21:56)
[2021-12-31] MEDS: INSULIN LISPRO SLIDING SCALE 100 UNITS/ML VIAL (humaLOG) SUBCUT PRN ×2 (09:28→18:40)
[2021-12-31] MEDS: INSULIN GLARGINE 100 UNITS/ML 10 ML VIAL SUBCUT SCH ×2 (09:30→21:00)
[2021-12-31] MEDS ORDERED: GLUCOSE (DEXTROSE) ORAL GEL -Adults PO PRN (10:30)
[2021-12-31] MEDS ORDERED: DEXTROSE 50%-WATER 50 ML DISP.SYRIN IVP PRN (10:30)
[2021-12-31] MEDS ORDERED: D5W 1,000 ML IV PRN (10:30)
--- NOTE | 2021-12-31 10:50 | NUR ---
RECEIVED A CALL FROM PATIENT'S SON: ROM SHEA. TELEPHONE CONSENT OBTAINED FOR HEMODIALYSIS ACCESS INSERTION. CONSENT WITNESSED BY: EDWIN HOPSON RN Addendum: 12/31/21 at 1105 by [facility] Nannette LOGAN RECEIVED A CALL FROM PATIENT'S SON: ROM SHEA. TELEPHONE CONSENT OBTAINED FOR HEMODIALYSIS ACCESS INSERTION. CONSENT WITNESSED BY: EDWIN HOPSON RN -KEN COREY RN
--- NOTE | 2021-12-31 11:00 | NUR ---
PAGED DR. ZAYDA WILLIS FOR CONSULT REGARDING PLACEMENT OF HEMODIALYSIS ACCESS. LEFT A MESSAGE ON VOICEMAIL. -KEN COREY RN Addendum: 12/31/21 at 1117 by [employer] steam gigger PAGED DR. ZAYDA WILLIS FOR PLACEMENT OF HEMODIALYSIS ACCESS, ALREADY BEEN CONSENTED BY PATIENT'S SON : ROM SHEA. SPOKE WITH NOEMY FROM DR. WILLIS'S OFFICE & WILL RELAY THE MESSAGE TO DR. WILLIS. -KEN COREY RN
[2021-12-31] MEDS ORDERED: HEPARIN SODIUM,PORCINE 5,000 UNITS/ML VIAL ONE (12:37)
--- NOTE | 2021-12-31 13:10 | NUR ---
DR. WILLIS AT BEDSIDE FOR PLACEMENT OF CENTRAL LINE CATHETER. TIME OUT -- 1310 HRS CENTRAL LINE PLACED, CHEST XRAY ORDERED TO VERIFY THE LINE.
[2021-12-31] MEDS: NACL 0.9% 1,000 ML IV SCH (13:45)
--- NOTE | 2021-12-31 15:56 | NUR ---
Paged Dr. Moody regarding RD recommendation for tube feeding & to verify water flush order. Spoke with Bridgett. Still awaiting for call back. -KEN COREY RN
--- NOTE | 2021-12-31 16:20 | NUR ---
RT NOTES SAT on 70% is 94%.
--- NOTE | 2021-12-31 17:19 | NUR ---
NOTIFIED OF CONSULT FOR ORDERS ORDERING PHY: REASON FOR CONSULT: SEPTIC SHOCK SPOKE TO: SEPTIC SHOCK
--- NOTE | 2021-12-31 17:45 | NUR ---
RT NOTES SPUTUM COLLECTED. ENDORSED TO LAB. DESMOND GARDUNO AND DESMOND OLIVAS AWARE.
--- NOTE | 2021-12-31 17:45 | NUR ---
RT NOTES PT'S CURRENT SAT 97%. FIO2 TO 0.60 PER TITRATION ORDER. RN NOTIFIED.
--- NOTE | 2021-12-31 20:00 | NUR ---
Assumed pt care bedside report received from LAUREEN RN, met pt sedated on Morphine drip 4mg/hr, intubated ETT to Ventilator tolerating well O2 sat 97% on A.C mode rate 20 TV 450 FIO2 60% PEEP 5, OGT placement checked verified by auscultation connected to tube feeding Nephro @20ml/hr, active bowel sounds,oral care suction, allen to gravity, repositioned with pillow support, Dopamine drip @10mcg/kg/min vitals sign stable afebrile will continue to monitor and treat as per care plan
--- NOTE | 2021-12-31 21:28 | NUR ---
Dr QUINTEROS SAYED rounds at the bedside updates on pt's condition blood sugar checked was 133 order received to hold LANTUS dose scheduled tonight
--- NOTE | 2021-12-31 22:00 | NUR ---
Consult Dr Goodson infection disease notification of consult fist call was 2055. @2199 Dr Walker called back this MD sound controller, updates of pt's condition on admission, diagnosis ongoing treatments antibiotics Zithromycin, Rocephin, WBC was 25.8 and no new order received as at this time.
--- NOTE | 2021-12-31 22:02 | NUR ---
Dobutamine drip started as per MD's order @2mcg/kg/min vitals signs stable will continue to monitor and treat,
[2022-01-01] VITALS (41 sets, daily range): BP systolic 106–174
--- NOTE | 2022-01-01 01:21 | NUR ---
Family updates education on care plan at the bedside via phone on pt's condition, ongoing treatments vent settings latest blood sugar also if pt still receiving Morphine IV pt's, family support and they were grateful. Also encouraged them to call back and verbalized their concerns.
[2022-01-01] MEDS: NACL 0.9% 1,000 ML IV SCH ×2 (03:37→15:50)
--- NOTE | 2022-01-01 03:53 | NUR ---
Clarification of orders Notified Dr Reddy that pt switched to Dobutamine as ordered as Dopamine being D/C order received to continue Dobutamine drip as at this time ongoing Dobutamine drip @10mcg/kg/min b/p 117/85 map 104 HR 65 RR20 O2 SAT 95%
[2022-01-01 06:25] LABS: BASOPHILS % (AUTO) 0.2 % (0.0-2.0); HEMATOCRIT 24.9 % (36-48); HEMOGLOBIN 8.2 g/dL (12.0-16.0); LYMPHOCYTES # (AUTO) 1.2 K/uL (1.0-5.5); LYMPHOCYTES % (AUTO) 5.6 % (20.5-51.5); MEAN CORPUSCULAR HEMOGLOBIN 31 pg (27-31); MEAN CORPUSCULAR HGB CONC 33 % (32-36); MEAN CORPUSCULAR VOLUME 93 fL (79.0-98.0); MONOCYTES # (AUTO) 0.9 K/uL (0.0-1.0); MONOCYTES % (AUTO) 4.5 % (1.7-9.3); NEUTROPHILS # (AUTO) 18.7 K/uL (1.8-7.7); PLATELET COUNT (AUTO) 201 K/uL (130-430); RED BLOOD CELL COUNT(AUTO) 2.68 MIL/uL (4.2-6.2); RED CELL DISTRIBUTION WIDTH 13.5 % (9.0-15.0); WHITE BLOOD COUNT (AUTO) 20.8 K/uL (4.8-10.8)
[2022-01-01 06:54] LABS: ALANINE AMINOTRANSFERASE 60 U/L (12-78); ALBUMIN 2.2 g/dL (3.4-4.8); ANION GAP 14 (5-15); ASPARTATE AMINOTRANSFERASE 109 U/L (10-37); CHLORIDE 110 mmol/L (98-107); GLUCOSE 163 mg/dL (70-99); POTASSIUM 4.4 mmol/L (3.5-5.1); SODIUM SERUM 140 mmol/L (136-145); TOTAL BILIRUBIN < 0.1 mg/dL (0.0-1.0); UREA NITROGEN, BLOOD 74 mg/dL (8-21)
--- NOTE | 2022-01-01 07:05 | NUR ---
Change of shift report given to Sha LOGAN at the bedside as at this time no changes of care plan and condition. Vitals signs stable and no sign of distress.
[2022-01-01] MEDS: FUROSEMIDE 40 MG/4 ML VIAL IVP SCH ×2 (07:11→18:14)
[2022-01-01] MEDS: HEPARIN SODIUM,PORCINE 5,000 UNITS/ML VIAL SUBCUT SCH ×2 (07:12→21:55)
[2022-01-01 07:25] LABS: CALCIUM 6.7 mg/dL (8.4-11.0)
--- NOTE | 2022-01-01 07:35 | NUR ---
Dr Reddy at bedside to assess. Updated MD regarding critical value for calcium 6.7. Patient presents stable vital signs.
[2022-01-01] MEDS: CEFTRIAXONE SOD 1 GM/ D5W 50 ML IV SCH ×2 (09:47)
[2022-01-01] MEDS: INSULIN GLARGINE 100 UNITS/ML 10 ML VIAL SUBCUT SCH ×2 (09:47→21:54)
--- NOTE | 2022-01-01 10:54 | NUR ---
[id number] GALEANA ORDER. PT PLACED BACK ON AC DUE TO DISTRESS. RN AWARE. WILL CONT TO MONITOR. Addendum: 01/01/22 at 1055 by Suzanne Gallego RT Amended: Links added.
[2022-01-01] MEDS ORDERED: CALCIUM GLUCONATE 1 GM/10 ML VIAL ONE (11:40)
[2022-01-01] MEDS ORDERED: CALCIUM GLUCONATE 2 GM in NS 100 ML IV ONE (12:00)
--- NOTE | 2022-01-01 12:15 | NUR ---
Dietitian Recommendations * Continue w/ Nepro at 30 ml/hr (goal rate) Please refer to Nutrition Assessment for details. Addendum: 01/01/22 at [address] Amended: Links added.
[2022-01-01 12:50] LABS: NEUTROPHILS % (AUTO) 89.7 % (40.0-70.0)
[2022-01-01] MEDS: INSULIN LISPRO SLIDING SCALE 100 UNITS/ML VIAL (humaLOG) SUBCUT PRN ×2 (13:12→18:23)
[2022-01-01] MEDS: MORPHINE SULFATE IN 0.9 % NACL 100 ML IV PRN (14:14)
--- NOTE | 2022-01-01 19:15 | NUR ---
@1915 Bedside report received from Sha LOGAN, pt still sedated Morphine drip @4mg/hr unable to follow command, agitated during oral care eyes open moves all extremities attempted to pull ETT restraints applied for safety skin checked done no breakdown noted, ETT to Vent a/c 20 TV 450 FIO2 50% PEEP 5 tolerating well, OGT placement checked verified by auscultation residual 40cc TF @ 40ml/hr as per Dr Ly's order, allen care done and hang to gravity. PT repositioned for comfort ongoing support to decrease anxiety also will continue to monitor and treat as per care plan.
--- NOTE | 2022-01-01 20:00 | NUR ---
Dobutamine iv drip titrated off elevated blood pressure 167/62 hr 60 rechecked no changes 178/57 HR 58 rhythm still third degree HB
[2022-01-02] VITALS (26 sets, daily range): BP systolic 122–172
[2022-01-02] MEDS: INSULIN LISPRO SLIDING SCALE 100 UNITS/ML VIAL (humaLOG) SUBCUT PRN ×2 (00:49→23:48)
[2022-01-02] MEDS: NACL 0.9% 1,000 ML IV SCH (06:16)
[2022-01-02] MEDS: FUROSEMIDE 40 MG/4 ML VIAL IVP SCH (06:17)
[2022-01-02] MEDS: HEPARIN SODIUM,PORCINE 5,000 UNITS/ML VIAL SUBCUT SCH ×2 (06:18→22:06)
[2022-01-02 06:23] LABS: BASOPHILS % (AUTO) 0.2 % (0.0-2.0); EOSINOPHILS % (AUTO) 0.2 % (0.0-4.0); HEMATOCRIT 25.5 % (36-48); HEMOGLOBIN 8.4 g/dL (12.0-16.0); LYMPHOCYTES # (AUTO) 1.6 K/uL (1.0-5.5); MEAN CORPUSCULAR HEMOGLOBIN 31 pg (27-31); MEAN CORPUSCULAR HGB CONC 33 % (32-36); MEAN CORPUSCULAR VOLUME 93 fL (79.0-98.0); MONOCYTES # (AUTO) 0.7 K/uL (0.0-1.0); MONOCYTES % (AUTO) 3.6 % (1.7-9.3); NEUTROPHILS # (AUTO) 17.4 K/uL (1.8-7.7); PLATELET COUNT (AUTO) 205 K/uL (130-430); RED BLOOD CELL COUNT(AUTO) 2.74 MIL/uL (4.2-6.2); RED CELL DISTRIBUTION WIDTH 13.6 % (9.0-15.0); WHITE BLOOD COUNT (AUTO) 19.8 K/uL (4.8-10.8)
[2022-01-02 06:45] LABS: ANION GAP 13 (5-15); CALCIUM 7.1 mg/dL (8.4-11.0); CHLORIDE 111 mmol/L (98-107); CREATININE 2.64 mg/dL (0.55-1.30); GLUCOSE 128 mg/dL (70-99); POTASSIUM 3.2 mmol/L (3.5-5.1); SODIUM SERUM 142 mmol/L (136-145); UREA NITROGEN, BLOOD 69 mg/dL (8-21)
--- NOTE | 2022-01-02 06:50 | NUR ---
@[address] Hernandez during rounds at the bedside to extubate pt ED as at this time pt awake very restless agitated vitals signs stable.
--- NOTE | 2022-01-02 07:17 | NUR ---
RT NOTES Per order, pt was extubated and placed on 50% vmk. Pt was suctioned via ETT and orally before cuff deflation. No immediate adverse reactions. Will monitor pt. Dr Reddy and DESMOND Locke at bedside.
--- NOTE | 2022-01-02 08:05 | NUR ---
RT NOTES Pt. desaturated to 86-88%, placed on NRM 100%, improvement noted. Pt is scheduled to have dialysis today, will attempt to titrate O2 once its done.
[2022-01-02] MEDS ORDERED: FUROSEMIDE 20 MG/2 ML VIAL ONE (08:08)
[2022-01-02] MEDS ORDERED: FUROSEMIDE 40 MG/4 ML VIAL ONE (08:08)
[2022-01-02] MEDS ORDERED: FUROSEMIDE 40 MG/4 ML VIAL IVP ONE (08:15)
--- NOTE | 2022-01-02 08:20 | NUR ---
@ 0717 pt extubated at the bedside all sedation turned off also pt's son SMILEY notified via video call at the bedside. Dr Reddy came to the bedside order received to place pt on transcutaneous pacemaker and keep Dobutamine drip @10mcg/kg/min no titration despite elevated blood pressure. Dr Moody also present at this time order received to d/c main IV FLUIDS and give pt extra Lasix 40mg ivp. Bedside report given to DOUGLAS LOGAN for continuity of care as at this time pt is vitals stable pt in no distress.
[2022-01-02] MEDS ORDERED: ONDANSETRON HCL 4 MG/2 ML VIAL ONE (09:53)
[2022-01-02] MEDS: CEFTRIAXONE SOD 1 GM/ D5W 50 ML IV SCH ×2 (10:00)
[2022-01-02] MEDS: INSULIN GLARGINE 100 UNITS/ML 10 ML VIAL SUBCUT SCH (10:00)
[2022-01-02] MEDS ORDERED: ONDANSETRON HCL 4 MG/2 ML VIAL IVP PRN (10:00)
--- NOTE | 2022-01-02 10:49 | NUR ---
PT HAD AN EPISODE OF VOMITING-LARGE AMT, UNDIGESTED TUBE FEEDING NOTED-BROWN/TAPIA COLORED. PT ASSISTED TO RIGHT SIDE, IMMEDIATELY SUCTIONED. PT ANXIOUS, PARTIAL BED BATH GIVEN WITH COMPLETE LINEN CHANGE AND NEW NRB USED. DR ROSS PAGED TO NOTIFY.
[2022-01-02] MEDS ORDERED: HEPARIN SODIUM,PORCINE 5,000 UNITS/ML VIAL ONE ×2 (11:54→11:57)
[2022-01-02] MEDS ORDERED: metroNIDAZOLE 250 mg/NS 50 ML IV ONE ×2 (14:45→18:00)
--- NOTE | 2022-01-02 16:25 | NUR ---
NEPHEW AT BEDSIDE, INFORMS THAT PT IS ALERT TO NAME AND PLACE, BUT CONFUSED TO WHY SHE IS HERE. LANGUAGE BARRIER FOR ME. NEPHEW STATES THAT PT WANTS TO GO HOME. INFORMED NEPHEW THAT PT HAS BEEN HOSTILE, KICKING AND SCRATCHING. PT VERBALIZED UNDERSTANDING TO STOP TO NEPHEW.
--- NOTE | 2022-01-02 16:55 | NUR ---
ST EVALUATION ATTEMPTED. PT DECLINED TO PARTICIPATE IN PO TRIALS. PT AGITATED AND KICKING EVEN WITH FAMILY PRESENT TO ENCOURAGE, RECOMMEND CONTINUE NPO UNTIL PT IS AGREEABLE TO PO TRIALS.
[2022-01-02] MEDS: ONDANSETRON HCL 4 MG/2 ML VIAL IVP PRN (17:37)
[2022-01-02] MEDS ORDERED: D5/0.45 NS 1,000 ML IV SCH (18:45)
[2022-01-02] MEDS ORDERED: *TPN PER PHARMACY XX PRN (18:45)
--- NOTE | 2022-01-02 20:10 | NUR ---
@1938 Assumed pt care report received from Diya RN at the bedside pt awake vitals stable no sign of distress follows command moves all extremities, oxygenation via non rebreather 100% O2 SAT 99% RR 19, PACED rhythm via transcutaneous pacer monitor at the bedside, ongoing dobutamine drip @10mcg/kg/min, denies pain allen to gravity adequate urine output, all central line access checked dry intact with dressing assist with repositioning in bed, restraints applied as pt aggressive, defensive, combative and attempting to pull lines. Close monitoring for safety at the bedside, will continue to monitor and treat as per care plan
--- NOTE | 2022-01-02 21:35 | NUR ---
@195 Dr QUINTEROS SAYED' s rounds at the bedside updates on pt's condition ongoing treatments, order received Protonix 40mg daily, Cepacol Lozenges to sooth pt's throat voice hoarseness, to call MD back with blood sugar @2100 MD call back with result 150 order receive to decrease Lantus 5units BID SQ.
[2022-01-02] MEDS: PANTOPRAZOLE SODIUM 40 MG/VIAL (PROTONIX) IVP SCH (22:04)
[2022-01-02] MEDS: BENZOCAINE/MENTHOL 1 EACH LOZENGE MM PRN (22:04)
[2022-01-02] MEDS: metroNIDAZOLE 250 mg/NS 50 ML IV SCH (22:05)
[2022-01-02] MEDS ORDERED: BENZOCAINE/MENTHOL 1 EACH LOZENGE ONE (22:05)
--- NOTE | 2022-01-02 22:55 | NUR ---
LANGUAGE BARRIER Most of the pt's problem is language/ communication barrier and fear uf unknown attempted to use [facility] but no hospice home care coordinator available and unable to reach pt's family. Later able to to reach [facility] hospice home care coordinator for about 20 minutes at the bedside the hospice home care coordinator TERESITA #[id number] said pt she could not understand pt clearly. After tried to pt's son again ROM but he did not picker feeder. Ongoing support at the bedside to alleviates anxiety.
[2022-01-03] VITALS (21 sets, daily range): BP systolic 145–177
[2022-01-03 05:59] LABS: BASOPHILS % (AUTO) 0.1 % (0.0-2.0); EOSINOPHILS % (AUTO) 0.4 % (0.0-4.0); HEMATOCRIT 24.1 % (36-48); HEMOGLOBIN 8.1 g/dL (12.0-16.0); LYMPHOCYTES % (AUTO) 7.4 % (20.5-51.5); MEAN CORPUSCULAR HEMOGLOBIN 31 pg (27-31); MEAN CORPUSCULAR HGB CONC 34 % (32-36); MEAN CORPUSCULAR VOLUME 92 fL (79.0-98.0); MONOCYTES # (AUTO) 0.6 K/uL (0.0-1.0); MONOCYTES % (AUTO) 4.6 % (1.7-9.3); NEUTROPHILS # (AUTO) 11.8 K/uL (1.8-7.7); NEUTROPHILS % (AUTO) 87.5 % (40.0-70.0); PLATELET COUNT (AUTO) 174 K/uL (130-430); RED BLOOD CELL COUNT(AUTO) 2.61 MIL/uL (4.2-6.2); RED CELL DISTRIBUTION WIDTH 13.3 % (9.0-15.0); WHITE BLOOD COUNT (AUTO) 13.4 K/uL (4.8-10.8)
[2022-01-03 06:11] LABS: ALANINE AMINOTRANSFERASE 58 U/L (12-78); ALBUMIN 2.3 g/dL (3.4-4.8); ANION GAP 9 (5-15); ASPARTATE AMINOTRANSFERASE 85 U/L (10-37); CALCIUM 7.1 mg/dL (8.4-11.0); CHLORIDE 103 mmol/L (98-107); CREATININE 1.99 mg/dL (0.55-1.30); GLUCOSE 139 mg/dL (70-99); PHOSPHORUS 3.4 mg/dL (2.7-4.5); POTASSIUM 3.3 mmol/L (3.5-5.1); SODIUM SERUM 140 mmol/L (136-145); TOTAL BILIRUBIN 0.3 mg/dL (0.0-1.0); UREA NITROGEN, BLOOD 46 mg/dL (8-21)
--- NOTE | 2022-01-03 07:20 | NUR ---
Change of shift bedside report to JEROMY LOGAN. PT awake alert follows command vitals signs stable no sign of distress as at this time no changes in care plan and condition.
[2022-01-03] MEDS: metroNIDAZOLE 250 mg/NS 50 ML IV SCH ×3 (07:26→20:51)
[2022-01-03] MEDS: FUROSEMIDE 40 MG/4 ML VIAL IVP SCH ×2 (07:27→17:08)
[2022-01-03] MEDS: HEPARIN SODIUM,PORCINE 5,000 UNITS/ML VIAL SUBCUT SCH ×2 (07:28→20:56)
--- NOTE | 2022-01-03 07:41 | NUR ---
0730 AM: MD FLYNN (CARDIOLOGY) CAME & NOTED 100% V-PACED 8 MA, 60 PPM TRANSCUTANEOUSLY, ORDERED TO TURN OFF V-PACING, NOTED TO HAVE INTRINSIC BEATS OF 56-59/MINUTE AND SAID TO CONTINUE DOBUTAMINE AT 10 MCG/KG/MINUTE (NO TITRATION) AND TO TRY GIVING ICE CHIPS OR ICE WATER. PATIENT GAGGED AFTER A FEW MINUTES OF SWALLOWING THE ICE CHIPS. MD FLYNN SAID TO KEEP PATIENT ON NPO FOR NOW. SWALLOW TEST IS PENDING BY SPEECH THERAPIST PER REPORT. PATIENT SPEAKS [place] ONLY. Addendum: 01/03/22 at 1201 by [facility] six pocket assembler USED PERSONAL INJURY ATTORNEY [id number] [employer]IA [employer] TABLET PERSONAL INJURY ATTORNEY, EXPLAINED TO PATIENT THAT SINCE SHE IS NAUSEATED, WILL GIVE INJECTION ONDANSETRON/ZOFRAN. PATIENT WANTS BY MOUTH, EXPLAINED THRU PERSONAL INJURY ATTORNEY THAT IF SHE NAUSEATED, CANNOT BY MOUTH, ONLY BY INJECTION THRU THE LINE IN HER LEFT NECK. ASKED PT. IF SHE IS AWARE THAT IF SHE IS IN THE HOSPITAL. PT. IS NOT AWARE OF HER LOCATION. ORIENTED THRU PERSONAL INJURY ATTORNEY THAT SHE IS IN [facility], TODAY IS FRIDAY & THE DATE & THAT SHE WAS JUST BEEN OFF VENTILATOR FROM YESTERDAY 01/02, SHE MIGHT HAVE LOST TRACK OF TIME. PT. WANTS HER MEDICATIONS, HER METFORMIN. INFORMED THAT SHE IS NOT IN METFORMIN FOR NOW. ONLY INSULIN ICU CONDITION CHANGES, SHE HAS A PRN HUMALOG & THAT SHE IS COVERED WITH LONG ACTING INSULIN LANTUS. 0930 AM: GOT HOLD OF PERSONAL INJURY ATTORNEY AGAIN BY [employer], INFORMED OF THE DOSE OF LANTUS, LONG ACTING INSULIN 5 UNITS, PATIENT ASKED FOR HER MEDICATIONS AGAIN. PATIENT NOTED TO HAVE A SMALL SPIT OF THICK YELLOW SPUTUM ON THE BASIN. EARLIER AROUND 0745AM: PATIENT SPOKE WITH SON VIA SNAPCHAT WITH NIGHT RN'S PHONE.
[2022-01-03] MEDS: ONDANSETRON HCL 4 MG/2 ML VIAL IVP PRN (08:43)
[2022-01-03] MEDS: CEFTRIAXONE SOD 1 GM/ D5W 50 ML IV SCH ×2 (09:50)
[2022-01-03] MEDS: PANTOPRAZOLE SODIUM 40 MG/VIAL (PROTONIX) IVP SCH (09:50)
[2022-01-03] MEDS: INSULIN GLARGINE 100 UNITS/ML 10 ML VIAL SUBCUT SCH ×2 (09:53→20:55)
[2022-01-03 11:49] LABS: TRIGLYCERIDES 78 mg/dL (30-150)
--- NOTE | 2022-01-03 12:07 | NUR ---
Nutrition F/U Admitting Diagnosis CHF, PNA, Heart Block Reviewed Pertinent Medical/Surgical Hx Medical Record Other Medical History Comment: PMH: DM, HTN per physician notes SARS-CoV-2 Ag (Rapid) Negative 12/29 Subjective Information: RD attended ICU rounds this morning. Primary RN reported that pt had HD yesterday w/ 1100 out; ST unable to successfully perform swallow eval yesterday d/t pt's mentation; pt is s/p extubation yesterday; plan to start TPN today. RD spoke w/ pharmD regarding rec for TPN goal rate; pharmD stated he would like to start conservatively. Per EMR review, pt is on 5 L O2 via oxymiser NC; abd is soft and non-distended w/ active bowel sounds; no BM documented; Padilla scale: 13 w/ L heel redness noted. Current TPN support order yields 686 kcal/day, 43 gm protein/day, 1008 ml free water/day, and GIR: 1.6 mg CHO/kg/min, which would meets 44% of lower end of estimated caloric needs and 68% of lower end of estimated protein needs. Current Diet Order/Nutrition Support: NPO Pending Swallow Screen x0 days Patient/Significant Other Unable To Verbalize Pertinent Medications: lantus, SSI, heparin, lasix, protonix IV, zofran, D5%NS at 50 ml/hr (204 kcal/day) Pertinent Labs: WBC 13.4 H, H/H 8.1 L/24.1 L, BUN 46 H, CRE 1.99 H, BG 139 H, POC BG 138 H; 12/31: HgA1c 8.2 H, TG 77 WNL Height (Feet) 5 feet Height (Inches) 3.00 inches Weight (Pounds) 144 pounds -- stable since 01/01 Patient Weight 65.374 kg Body Mass Index 25.51 kg/m2 %IBW 125 Simpson/Adjusted Body Weight 115#/52.3 kg Recent Weight Change unable to verify Weight Status Overweight NEW Estimated Energy Expenditure (kcals/day) 9368-3087 (30-35 kcal/kg IBW d/t HD and sepsis) Estimated Protein Required (g/day) 63-78 g/day (1.2-1.5 g/kg IBW d/t HD and sepsis) Estimated Fluid Required (l/day) Per MD d/t HONG Problem/Etiology/Signs/Symptoms *MODIFIED* Altered nutrition-related labs R/T endocrine and renal dysfunction AEB abnormal BG, POC BG, BUN, and Cr lab values. *Improving w/ HD Suboptimal nutrition support R/T metabolic demands AEB current TPN order does not meet 75% of estimated nutritional requirements for HD and sepsis. *New Expected Outcomes/Goals *MODIFIED* - Monitor tolerance of intake w/ goal of pt meeting at least 75% of estimated needs, labs trending WNL, normal GI function, skin integrity, wt maintenance. Dietitian Recommendations * TPN D30%, AA8.5% at 75 ml/hr (goal rate) via central line Provides: 1226 kcal/day, 77 gm protein/day, 1800 ml total volume/day, and GIR: 2.9 mg CHO/kg/min Meets: 78% of lower end of estimated caloric needs and 99% of upper end of estimated protein needs * Consider D/C D5%NS IV Follow Up High Risk: F/U in 2-3 days
--- NOTE | 2022-01-03 12:15 | NUR ---
Dietitian Recommendations * TPN D30%, AA8.5% at 75 ml/hr (goal rate) via central line Provides: 1226 kcal/day, 77 gm protein/day, 1800 ml total volume/day, and GIR: 2.9 mg CHO/kg/min Meets: 78% of lower end of estimated caloric needs and 99% of upper end of estimated protein needs * Consider D/C D5%NS IV LP, RD Please refer to Nutrition F/U for details.
[2022-01-03] MEDS: INSULIN LISPRO SLIDING SCALE 100 UNITS/ML VIAL (humaLOG) SUBCUT PRN ×3 (12:17→20:55)
[2022-01-03] MEDS: BENZOCAINE/MENTHOL 1 EACH LOZENGE MM PRN (13:22)
[2022-01-03] MEDS ORDERED: POTASSIUM CHLORIDE 20 MEQ TAB.PRT.SR PO ONE (16:30)
--- NOTE | 2022-01-03 16:52 | NUR ---
ST EVALUATION COMPLETED. ST TX NOT INDICATED AT THIS TIME. RECOMMEND PO DIET OF PUREE/THIN LIQUID. 1:1 SUPERVISION AND FULL ASPIRATION PRECAUTIONS.
[2022-01-03] MEDS: ACETAMINOPHEN 325 MG TABLET PO PRN (17:08)
[2022-01-03] MEDS: hydrALAZINE HCL 20 MG/ML VIAL IVP PRN (20:52)
[2022-01-03] MEDS ORDERED: hydrALAZINE HCL 25 MG TABLET PO SCH (21:00)
[2022-01-03] MEDS ORDERED: TPN CENTRAL 0.0001 ML, SODIUM ACETATE 40 MEQ, POTASSIUM CHLORIDE 20 MEQ, K PHOS 9 MM, M... IV SCH ×9 (21:00)
[2022-01-04] VITALS (23 sets, daily range): BP systolic 137–209
[2022-01-04] MEDS: hydrALAZINE HCL 20 MG/ML VIAL IVP PRN ×2 (02:03→08:52)
[2022-01-04] MEDS: ONDANSETRON HCL 4 MG/2 ML VIAL IVP PRN ×2 (03:01→10:37)
[2022-01-04] MEDS: metroNIDAZOLE 250 mg/NS 50 ML IV SCH ×3 (03:13→20:32)
[2022-01-04] MEDS: FUROSEMIDE 40 MG/4 ML VIAL IVP SCH ×2 (05:20→18:19)
[2022-01-04] MEDS: INSULIN LISPRO SLIDING SCALE 100 UNITS/ML VIAL (humaLOG) SUBCUT PRN ×3 (05:29→18:17)
[2022-01-04 06:36] LABS: ALANINE AMINOTRANSFERASE 50 U/L (12-78); ALBUMIN 2.5 g/dL (3.4-4.8); ANION GAP 12 (5-15); ASPARTATE AMINOTRANSFERASE 53 U/L (10-37); CHLORIDE 101 mmol/L (98-107); CREATININE 1.87 mg/dL (0.55-1.30); GLUCOSE 314 mg/dL (70-99); PHOSPHORUS 2.7 mg/dL (2.7-4.5); POTASSIUM 3.8 mmol/L (3.5-5.1); SODIUM SERUM 138 mmol/L (136-145); TOTAL BILIRUBIN 0.3 mg/dL (0.0-1.0); UREA NITROGEN, BLOOD 42 mg/dL (8-21)
[2022-01-04] MEDS: PANTOPRAZOLE SODIUM 40 MG/VIAL (PROTONIX) IVP SCH (08:53)
[2022-01-04] MEDS: CEFTRIAXONE SOD 1 GM/ D5W 50 ML IV SCH ×2 (08:53)
[2022-01-04] MEDS: LISINOPRIL 10 MG TABLET (PRINIVIL) PO SCH (08:54)
[2022-01-04] MEDS: HEPARIN SODIUM,PORCINE 5,000 UNITS/ML VIAL SUBCUT SCH ×2 (08:55→20:42)
[2022-01-04 09:04] LABS: CALCIUM 6.8 mg/dL (8.4-11.0)
[2022-01-04] MEDS: INSULIN GLARGINE 100 UNITS/ML 10 ML VIAL SUBCUT SCH (09:11)
[2022-01-04] MEDS ORDERED: CALCIUM GLUCONATE 1 GM/10 ML VIAL IV ONE (10:45)
[2022-01-04] MEDS ORDERED: CALCIUM GLUCONATE 2 GM in NS 100 ML IV ONE (11:30)
[2022-01-04] MEDS ORDERED: CALCIUM GLUCONATE 1 GM in NS 100 ML IV ONE (11:30)
[2022-01-04] MEDS ORDERED: COMMUNICATION ORDER XX ONE (15:45)
--- NOTE | 2022-01-04 19:55 | NUR ---
OPENING NOTE: Report from Claudette LOGAN. Pt had HD 01/02 w/ 1100 out. Pt is s/p extubation 01/02. TPN is@ 42ml/hr. Pt is on 5 L O2 via Oxymizer NC; abd is soft and non-distended w/ active bowel sounds; no BM documented today or yesterday. Pt L heel redness noted. Pt has L IJ triple lumen infusing currently. Per MD Fatima cath needs to be removed and HD nurse is aware.vss at this time.pt has no c/o of pain or n/v. all safety measures in place will continue to monitor
[2022-01-04] MEDS ORDERED: TPN CENTRAL 0.0001 ML, SODIUM ACETATE 40 MEQ, POTASSIUM CHLORIDE 20 MEQ, K PHOS 9 MM, M... IV SCH ×9 (21:00)
--- NOTE | 2022-01-04 23:39 | NUR ---
HIGH ALERT NOTE: DR. QUINTEROS SAYED ORDERED LANTUS 10 UNITS X1 NOW FOR BLOOD GLUCOSE 463. Called Dr. QUINTEROS SAYED back at [phone] identified within the medical roster to verify physician authenticity.
[2022-01-04] MEDS ORDERED: INSULIN GLARGINE 100 UNITS/ML 10 ML VIAL SUBCUT ONE (23:45)
[2022-01-05] VITALS (23 sets, daily range): BP systolic 129–194
[2022-01-05] MEDS: INSULIN LISPRO SLIDING SCALE 100 UNITS/ML VIAL (humaLOG) SUBCUT PRN ×4 (00:15→18:48)
[2022-01-05] MEDS: metroNIDAZOLE 250 mg/NS 50 ML IV SCH ×3 (04:38→21:47)
[2022-01-05] MEDS: FUROSEMIDE 40 MG/4 ML VIAL IVP SCH (05:32)
[2022-01-05 06:35] LABS: BASOPHILS % (AUTO) 0.1 % (0.0-2.0); EOSINOPHILS # (AUTO) 0.1 K/uL (0.0-0.4); EOSINOPHILS % (AUTO) 0.7 % (0.0-4.0); HEMATOCRIT 25.9 % (36-48); HEMOGLOBIN 8.6 g/dL (12.0-16.0); LYMPHOCYTES # (AUTO) 1.3 K/uL (1.0-5.5); LYMPHOCYTES % (AUTO) 12.2 % (20.5-51.5); MEAN CORPUSCULAR HEMOGLOBIN 31 pg (27-31); MEAN CORPUSCULAR HGB CONC 33 % (32-36); MEAN CORPUSCULAR VOLUME 92 fL (79.0-98.0); MONOCYTES # (AUTO) 0.7 K/uL (0.0-1.0); MONOCYTES % (AUTO) 6.6 % (1.7-9.3); NEUTROPHILS # (AUTO) 8.6 K/uL (1.8-7.7); NEUTROPHILS % (AUTO) 80.4 % (40.0-70.0); PLATELET COUNT (AUTO) 193 K/uL (130-430); RED BLOOD CELL COUNT(AUTO) 2.83 MIL/uL (4.2-6.2); RED CELL DISTRIBUTION WIDTH 13.3 % (9.0-15.0); WHITE BLOOD COUNT (AUTO) 10.7 K/uL (4.8-10.8)
[2022-01-05 07:01] LABS: ALANINE AMINOTRANSFERASE 38 U/L (12-78); ALBUMIN 2.3 g/dL (3.4-4.8); ANION GAP 9 (5-15); ASPARTATE AMINOTRANSFERASE 32 U/L (10-37); CALCIUM 7.4 mg/dL (8.4-11.0); CHLORIDE 100 mmol/L (98-107); CREATININE 2.25 mg/dL (0.55-1.30); GLUCOSE 391 mg/dL (70-99); POTASSIUM 3.2 mmol/L (3.5-5.1); SODIUM SERUM 137 mmol/L (136-145); TOTAL BILIRUBIN 0.2 mg/dL (0.0-1.0); UREA NITROGEN, BLOOD 52 mg/dL (8-21)
--- NOTE | 2022-01-05 07:30 | NUR ---
Assumed care of pt and pt is resting comfortablly with no s/s of distress. HR at 54, RR at 24, O2 97% on oxymizer 6L, BP at 139/51, temp at 97.5. Pt is A&Ox2. Language barrier present. Pt has allen cath present that is intact. 18g IV on left hand. Has right femoral brannon cath that needs to be removed by dialysis nurse that is already aware. Pt also has a Left IJ triple lumen that is intact with no s/s of infection. Currently pt is on a Dobutamine drip running at 5mcg/min, has TPN running at 42ml/hr, and NS running at 5ml/hr. Upon over viewing lab values, it is noted that WBC has decreased to 10.7 and Potassium decreased to 3.2. Dr. Ly will be paged to notify of low levels of Potassium. Pts skin is intact but there is noteable reddened area on left heel and coccyx area. Bed in lowest position.
--- NOTE | 2022-01-05 08:00 | NUR ---
Paged Dr. Ly in regards to pt's Potassium level being at 3.2. Waiting for call back.
[2022-01-05] MEDS: PANTOPRAZOLE SODIUM 40 MG/VIAL (PROTONIX) IVP SCH (08:20)
[2022-01-05] MEDS: HEPARIN SODIUM,PORCINE 5,000 UNITS/ML VIAL SUBCUT SCH ×2 (08:28→21:32)
[2022-01-05] MEDS: CEFTRIAXONE SOD 1 GM/ D5W 50 ML IV SCH ×2 (08:39)
--- NOTE | 2022-01-05 08:57 | NUR ---
Paged Dr. Doe about pt's Potassium level of 3.2 waiting for call back.
--- NOTE | 2022-01-05 09:25 | NUR ---
Dr. Reddy at bedside. Ordered to stop Dobutamine drip and have external transcutaneous pacemaker placed for standby. Pt has no c/o. HR steady at 55. O2 at 96% NC 6L.
--- NOTE | 2022-01-05 09:30 | NUR ---
Repositioned pt to right side. Pt has no c/o.
[2022-01-05] MEDS: LISINOPRIL 10 MG TABLET (PRINIVIL) PO SCH (09:33)
[2022-01-05] MEDS ORDERED: POTASSIUM CHLORIDE 20 MEQ TAB.PRT.SR PO ONE (10:00)
[2022-01-05] MEDS: INSULIN GLARGINE 100 UNITS/ML 10 ML VIAL SUBCUT SCH ×2 (10:15→21:36)
--- NOTE | 2022-01-05 10:20 | NUR ---
Dr. Moody ordered 40meq KDuR potassium PO and new TPN with higher level of potassium that will be started at 1999.
--- NOTE | 2022-01-05 11:30 | NUR ---
Repositioned pt to left side. Pt has no c/o.
[2022-01-05] MEDS: ONDANSETRON HCL 4 MG/2 ML VIAL IVP PRN (12:31)
[2022-01-05] MEDS ORDERED: INSULIN NPH 100 UNITS/ML 10 ML VIAL SUBCUT ONE (13:00)
--- NOTE | 2022-01-05 13:30 | NUR ---
Repositioned pt to right side. Pt has no c/o.
[2022-01-05] MEDS ORDERED: THEOPHYLLINE ANHYDROUS 200 MG TAB.SR.12H PO ONE (14:00)
[2022-01-05] MEDS: hydrALAZINE HCL 20 MG/ML VIAL IVP PRN ×2 (14:28→21:45)
--- NOTE | 2022-01-05 14:33 | NUR ---
Hydralazine 10mg IV given due to BP at 195/62.
--- NOTE | 2022-01-05 14:51 | NUR ---
BP now currently at 158/43. Pt is resting with no s/s of distress. Will continue to monitor.
--- NOTE | 2022-01-05 18:32 | NUR ---
Pt ate 30% of dinner. Place optifoam on reddened area of coccyx area. Emptied 400cc of urine from allen cath.
--- NOTE | 2022-01-05 18:50 | NUR ---
Accucheck done and results were 300. Lispro 6 units given sq RLQ.
--- NOTE | 2022-01-05 19:56 | NUR ---
OPENING NOTE Pt is resting comfortably with no s/s of distress. HR at 54, RR at 24, O2 97% on oxymizer 6L, BP at 160/89, temp at 998.1. Pt is A&Ox2. Language barrier present. Pt has Card cath with yellow color urine draining to gravity. 18g IV on left hand was removed.Has right femoral brannon cath that needs to be removed by dialysis nurse that is already aware. Pt also has a Left IJ triple lumen that is dry intact and infusing. Pt has TPN running at 42ml/hr, and NS running at 5ml/hr TKO. Skin is intact but there is noteable reddened area on left heel and coccyx area. All safety precautions are in place
[2022-01-05] MEDS ORDERED: TPN CENTRAL 0.0001 ML, SODIUM ACETATE 40 MEQ, POTASSIUM CHLORIDE 30 MEQ, K PHOS 9 MM, M... IV SCH ×10 (21:00)
--- NOTE | 2022-01-05 21:00 | NUR ---
ELEVATED BP PT BP WAS ELEAVE ABOVE 160. PRN HYDRALAZINE WAS GIVEN IV PUSH
[2022-01-05] MEDS: THEOPHYLLINE ANHYDROUS 200 MG TAB.SR.12H PO SCH (21:38)
[2022-01-05] MEDS: BENZOCAINE/MENTHOL 1 EACH LOZENGE MM PRN (21:46)
--- NOTE | 2022-01-05 22:30 | NUR ---
ATTEMPT TO GET OUT OF BED CHAGRE NURSE ALERTED ME THAT PT WAS TRYING TO GET OUT OF THE BED. GOT EXTERMINATION SUPERVISOR ON LINE AND SHE EXPLAINED WHY PT COULD NOT GET UP AND i HAD EXTERMINATION SUPERVISOR EXPLAIN TO PT THAT HER OXYGEN IS NOW LOW AND THAT IS WHY SHE FEELS OUT OF BREATH. OXYGEN MOVED UP TP 6 LITER. PT AGREED TO STAY IN BED.
[2022-01-06] VITALS (22 sets, daily range): BP systolic 119–189
[2022-01-06] MEDS: INSULIN LISPRO SLIDING SCALE 100 UNITS/ML VIAL (humaLOG) SUBCUT PRN ×3 (00:35→18:11)
[2022-01-06] MEDS: metroNIDAZOLE 250 mg/NS 50 ML IV SCH ×3 (03:10→22:12)
[2022-01-06 07:00] LABS: BASOPHILS % (AUTO) 0.4 % (0.0-2.0); EOSINOPHILS # (AUTO) 0.4 K/uL (0.0-0.4); EOSINOPHILS % (AUTO) 3.8 % (0.0-4.0); HEMATOCRIT 28.5 % (36-48); HEMOGLOBIN 9.5 g/dL (12.0-16.0); LYMPHOCYTES # (AUTO) 2.1 K/uL (1.0-5.5); LYMPHOCYTES % (AUTO) 18.4 % (20.5-51.5); MEAN CORPUSCULAR HEMOGLOBIN 31 pg (27-31); MEAN CORPUSCULAR HGB CONC 33 % (32-36); MEAN CORPUSCULAR VOLUME 91 fL (79.0-98.0); MONOCYTES # (AUTO) 0.8 K/uL (0.0-1.0); MONOCYTES % (AUTO) 6.7 % (1.7-9.3); NEUTROPHILS # (AUTO) 7.9 K/uL (1.8-7.7); NEUTROPHILS % (AUTO) 70.7 % (40.0-70.0); PLATELET COUNT (AUTO) 234 K/uL (130-430); RED BLOOD CELL COUNT(AUTO) 3.11 MIL/uL (4.2-6.2); RED CELL DISTRIBUTION WIDTH 13.7 % (9.0-15.0); WHITE BLOOD COUNT (AUTO) 11.3 K/uL (4.8-10.8)
[2022-01-06 07:24] LABS: ALANINE AMINOTRANSFERASE 33 U/L (12-78); ALBUMIN 2.4 g/dL (3.4-4.8); ANION GAP 7 (5-15); ASPARTATE AMINOTRANSFERASE 68 U/L (10-37); CALCIUM 7.5 mg/dL (8.4-11.0); CHLORIDE 101 mmol/L (98-107); CREATININE 1.79 mg/dL (0.55-1.30); GLUCOSE 173 mg/dL (70-99); PHOSPHORUS 2.5 mg/dL (2.7-4.5); SODIUM SERUM 137 mmol/L (136-145); TOTAL BILIRUBIN 0.2 mg/dL (0.0-1.0); UREA NITROGEN, BLOOD 52 mg/dL (8-21)
--- NOTE | 2022-01-06 07:30 | NUR ---
Assumed care of pt Jaqueline LOGAN. Pt is in bed resting with no s/s of distress. Pt is A&Ox4. Pt does have a hard time hearing. Pt has TPN running at 42ml/hr, NS runing at 5ml/hr, Flagyl running at 50ml/hr, and Dobutamine on standby. BP at 161/46, HR 51, RR 20, O2 98% 3L Oxymiser, and Temp 99.0F axillary. Pt has reddened area on coccyx with optifoam placed. Pt is positioned on her right side. Left IJ intact no infiltration noted. Pt does not have myles cath on her right femoral, it is covered with gauze and dressing is intact. Card cath in place and intact. Bed in lowest position.
--- NOTE | 2022-01-06 08:40 | NUR ---
Received critical lab value of Potassium 2.9. Dr. Ly paged. Waiting for call back.
[2022-01-06 08:41] LABS: POTASSIUM 2.9 mmol/L (3.5-5.1)
[2022-01-06] MEDS: HEPARIN SODIUM,PORCINE 5,000 UNITS/ML VIAL SUBCUT SCH ×2 (09:04→22:39)
[2022-01-06] MEDS: PANTOPRAZOLE SODIUM 40 MG/VIAL (PROTONIX) IVP SCH (09:15)
[2022-01-06] MEDS: CEFTRIAXONE SOD 1 GM/ D5W 50 ML IV SCH ×2 (09:15)
[2022-01-06] MEDS: LISINOPRIL 10 MG TABLET (PRINIVIL) PO SCH (09:15)
[2022-01-06] MEDS: THEOPHYLLINE ANHYDROUS 200 MG TAB.SR.12H PO SCH ×2 (09:16→22:13)
[2022-01-06] MEDS: INSULIN GLARGINE 100 UNITS/ML 10 ML VIAL SUBCUT SCH ×2 (09:41→21:00)
--- NOTE | 2022-01-06 09:43 | NUR ---
Dr. Ly paged again. waiting for call back. Accucheck done and results were 210.
--- NOTE | 2022-01-06 09:50 | NUR ---
Sent a text to Dr. Hernandez about pt's Potassium level being 2.9. Gave telephone order of Potassium Chloride 60meq PO to be given. Read back done and confirmed order.
[2022-01-06] MEDS ORDERED: POTASSIUM CHLORIDE 20 MEQ TAB.PRT.SR PO ONE (10:00)
--- NOTE | 2022-01-06 10:36 | NUR ---
Pt unable to tolerate PO Potassium. Pt did vomit. Paged Dr. Hernandez for a IV order of Potassium.
--- NOTE | 2022-01-06 10:43 | NUR ---
Dr. Hernandez called back and was notified of pt not tolerating PO potassium. He gave verbal order of Potassium Chloride 60meq IV. Read back confirmed. Pharmacy called to notify of medication.
[2022-01-06] MEDS ORDERED: KCL 40 mEq in 100 mL (PREMIX) 100 ML IV ONE (10:45)
--- NOTE | 2022-01-06 11:03 | NUR ---
Dr. Moody at bedside examining pt.
[2022-01-06] MEDS: hydrALAZINE HCL 20 MG/ML VIAL IVP PRN ×2 (12:41→19:28)
--- NOTE | 2022-01-06 12:45 | NUR ---
Hydralazine 10mg given IV for pt's BP at 189/73. HR 61. Pt has no c/o no s/s of distress.
[2022-01-06] MEDS: ONDANSETRON HCL 4 MG/2 ML VIAL IVP PRN ×2 (13:46→22:13)
--- NOTE | 2022-01-06 15:00 | NUR ---
Pt had a large BM light brown in color not fully solid. Cleaned pt and placed new sheets. Whitney care done. oral care done as well.
--- NOTE | 2022-01-06 16:20 | NUR ---
Pt's BP is currently at 187/61. Paged Dr. Hernandez. Waiting for call back.
--- NOTE | 2022-01-06 16:26 | NUR ---
Dr. Hernandez called back and gave a telephone order of Amlodipine 10mg daily to be given. read back done for verification.
[2022-01-06] MEDS ORDERED: amLODIPine BESYLATE 10 MG TABLET PO ONE (17:00)
[2022-01-06] MEDS: amLODIPine BESYLATE 10 MG TABLET PO SCH (17:02)
--- NOTE | 2022-01-06 19:03 | NUR ---
500ml urine output from allen cath that is intact no s/s of infection. Pt has no c/o.
--- NOTE | 2022-01-06 20:00 | NUR ---
OPENING NOTE Pt is in bed resting with no s/s of distress. Pt is A&Ox4. Pt does have a hard time hearing. Pt has TPN running at 42ml/hr, NS runing at 5ml/hr. BP at 183/71, HR 51, RR 31, O2 95% 3L Oxymiser, and Temp 98.4 axillary. Pt has reddened area on coccyx with optifoam placed. Pt has Left IJ which is infusing. Pt does not have myles cath on her right femoral,needs to be removed per MD. Card cath is draining to gravity. All safety measures in place.
--- NOTE | 2022-01-06 20:24 | NUR ---
HIGH BP PT GIVEN PRN OF HYDRALAZINE FOR INCREASED BP OF 183/71
[2022-01-06] MEDS ORDERED: SODIUM CHLORIDE IV SCH ×10 (21:00)
[2022-01-06] MEDS ORDERED: TPN CENTRAL IV SCH ×10 (21:00)
[2022-01-06] MEDS ORDERED: POTASSIUM CHLORIDE IV SCH ×10 (21:00)
[2022-01-06] MEDS ORDERED: [UNRECOGNIZED DRUG - OTHER] IV SCH ×10 (21:00)
--- NOTE | 2022-01-06 22:30 | NUR ---
HIGH BLOOD PRESSURE PT BLOOD PRESSURE WAS RECHECK AFTER MED GIVEN AND BP HAS DECREASE
--- NOTE | 2022-01-06 23:30 | NUR ---
RESP CHANGE PT WAS ABLE TO BE TITRATED DOWN AND IS NOW OFF OXYMISER AND PLACED OF N/C 4L
[2022-01-07] VITALS (24 sets, daily range): BP systolic 139–183
[2022-01-07] MEDS: INSULIN LISPRO SLIDING SCALE 100 UNITS/ML VIAL (humaLOG) SUBCUT PRN ×3 (00:45→18:41)
[2022-01-07] MEDS: metroNIDAZOLE 250 mg/NS 50 ML IV SCH ×3 (04:00→20:42)
--- NOTE | 2022-01-07 05:30 | NUR ---
HIGH BLOOD PRESSURE PT WAS GIVEN PRN OF HYDRALAZINE
[2022-01-07] MEDS: ONDANSETRON HCL 4 MG/2 ML VIAL IVP PRN (05:42)
[2022-01-07] MEDS: hydrALAZINE HCL 20 MG/ML VIAL IVP PRN ×2 (05:43→14:48)
--- NOTE | 2022-01-07 05:45 | NUR ---
N/V PT C/O OF NAUSEA AND WAS GIVEN PRN OF ZOFRAN.
--- NOTE | 2022-01-07 06:00 | NUR ---
SKIN CHANGES PT C/O PAIN ON L HEEL AND BLISTER IS NOTED AND PICTURES WERE TAKEN. PT ALSO WAS BATHED AND THE PACER WAS REMOVED AND PT HAS SENSITIVITY TO THE GEL ON THE PADS AND HAS VA AREA SHE SCRATCHED THAT HAVE NOW OPEN, PICTURE WERE TAKEN
--- NOTE | 2022-01-07 06:00 | NUR ---
BLOOD SUGAR HIGH PT BS WAS 188 WHICH WOULD REQUIRE 2 UNIT OS HUMALOG LISPRO. PT WAS NOT COVER R/T C/O OF N/V AND MAY NOT EAT BREAKFAST
[2022-01-07 06:48] LABS: ALANINE AMINOTRANSFERASE 63 U/L (12-78); ALBUMIN 2.6 g/dL (3.4-4.8); ANION GAP 10 (5-15); ASPARTATE AMINOTRANSFERASE 71 U/L (10-37); CHLORIDE 103 mmol/L (98-107); CREATININE 1.78 mg/dL (0.55-1.30); GLUCOSE 224 mg/dL (70-99); PHOSPHORUS 2.5 mg/dL (2.7-4.5); POTASSIUM 3.9 mmol/L (3.5-5.1); SODIUM SERUM 138 mmol/L (136-145); TOTAL BILIRUBIN 0.4 mg/dL (0.0-1.0); UREA NITROGEN, BLOOD 50 mg/dL (8-21)
[2022-01-07 07:02] LABS: BASOPHILS # (AUTO) 0.1 K/uL (0.0-0.2); BASOPHILS % (AUTO) 0.6 % (0.0-2.0); EOSINOPHILS # (AUTO) 0.5 K/uL (0.0-0.4); EOSINOPHILS % (AUTO) 4.6 % (0.0-4.0); HEMOGLOBIN 9.6 g/dL (12.0-16.0); LYMPHOCYTES # (AUTO) 2.2 K/uL (1.0-5.5); LYMPHOCYTES % (AUTO) 19.2 % (20.5-51.5); MEAN CORPUSCULAR HEMOGLOBIN 31 pg (27-31); MEAN CORPUSCULAR HGB CONC 33 % (32-36); MEAN CORPUSCULAR VOLUME 93 fL (79.0-98.0); MONOCYTES # (AUTO) 0.9 K/uL (0.0-1.0); MONOCYTES % (AUTO) 7.6 % (1.7-9.3); NEUTROPHILS # (AUTO) 7.9 K/uL (1.8-7.7); PLATELET COUNT (AUTO) 237 K/uL (130-430); RED BLOOD CELL COUNT(AUTO) 3.11 MIL/uL (4.2-6.2); RED CELL DISTRIBUTION WIDTH 13.6 % (9.0-15.0); WHITE BLOOD COUNT (AUTO) 11.7 K/uL (4.8-10.8)
--- NOTE | 2022-01-07 07:30 | NUR ---
OPENING NOTE RECEIVED BEDSIDE REPORT FROM NIGHT RN. PT IS SLEEPING WITH HOB ELEVATED AT 45 DEGREES. N/C AT 4LPM. LEFT IJ TRIPLE LUMEN PRESENT WITH TPN RUNNING AT 42,LS/HR. R FEMORAL SANTHOSH CATH PRESENT. DUNN WITH STAR URINE DRAINING TO GRAVITY. ACCU-CHECKS Q6HRS. BED IN LOWEST POSITION, BED BRAKES ON, BED RAILS UP, CALL LIGHT WITHIN REACH.
[2022-01-07] MEDS: LISINOPRIL 10 MG TABLET (PRINIVIL) PO SCH (08:09)
[2022-01-07] MEDS: CEFTRIAXONE SOD 1 GM/ D5W 50 ML IV SCH ×2 (08:10)
[2022-01-07] MEDS: amLODIPine BESYLATE 10 MG TABLET PO SCH (08:10)
[2022-01-07] MEDS: THEOPHYLLINE ANHYDROUS 200 MG TAB.SR.12H PO SCH ×2 (08:11→20:42)
[2022-01-07] MEDS: PANTOPRAZOLE SODIUM 40 MG/VIAL (PROTONIX) IVP SCH (08:11)
[2022-01-07] MEDS: HEPARIN SODIUM,PORCINE 5,000 UNITS/ML VIAL SUBCUT SCH ×2 (08:14→20:40)
[2022-01-07] MEDS: INSULIN GLARGINE 100 UNITS/ML 10 ML VIAL SUBCUT SCH ×2 (08:16→21:58)
--- NOTE | 2022-01-07 12:35 | NUR ---
Nutritional F/U Admitting Diagnosis CHF, PNA, Heart Block Reviewed Pertinent Medical/Surgical Hx Medical Record Other Medical History Comment: PMH: DM, HTN per physician notes 01/02 - extubated SARS-CoV-2 Ag (Rapid) Negative 12/29 Subjective Information: RD attended ICU rounds this morning. Primary RN reported that pt is receiving pureed diet, but not eating well, c/o nausea, pt had an episode of emesis 01/06, none today; pt is no longer receiving HD; on 4L NC; pt w/ redness to coccyx and R. heel. Per EMR review, S/P ST swallow eval 01/03 - ST recommended Pureed diet w/ thin liquids; abd has active bowel sounds; last BM 01/05 x1; Padilla scale: 13 w/ L heel redness blister noted; pt w/ 1+ non-pitting edema to BUE; average PO intake 21% x 4 meal records. Current TPN support order yields 1142 kcal/day, 71 gm protein/day, 1680 ml free water/day, and GIR: 2.7 mg CHO/kg/min, which would meets 73% of lower end of estimated caloric needs and 91% of upper end of estimated protein needs. Rd spoke w/ RD Laurel, via telephone regarding diet order for mechanical soft and ST recommendation for pureed texture. RN reported that she would speak to the doctor regarding the need for TPN and PO diet as well as request appropriate texture. Current Diet Order/Nutrition Support: Cardiac Mechanical Soft x 2 days, TPN: D30, 8.5AA at 70 ml/hr Patient/Significant Other Unable To Verbalize Pertinent Medications: lantus, SSI, heparin, protonix IV, zofran, lisinopril Pertinent Labs: WBC 11.7 H, BUN 50 H, Cr 1.78 H, BG 224 H, POC BG 188 H, Ca 8 L, P 2.5 L, AST 71 H. Alb 2.6 L Height (Feet) 5 feet Height (Inches) 3.00 inches Weight (Pounds) 144 pounds -- stable since 12/30 Patient Weight 65.374 kg Body Mass Index 25.51 kg/m2 %IBW 125 [place]/Adjusted Body Weight 115#/52.3 kg Recent Weight Change unable to verify Weight Status Overweight NEW Estimated Energy Expenditure (kcals/day) 0115-2930 (30-35 kcal/kg IBW d/t sepsis) Estimated Protein Required (g/day) 63-78 g/day (1.2-1.5 g/kg IBW d/t sepsis) Estimated Fluid Required (l/day) Per MD d/t HONG Problem/Etiology/Signs/Symptoms *MODIFIED* Altered nutrition-related labs R/T endocrine and renal dysfunction AEB abnormal BG, POC BG, BUN, and Cr lab values. *Ongoing - off HD Suboptimal nutrition support R/T metabolic demands AEB current TPN order does not meet 75% of estimated nutritional requirements for HD and sepsis. *Resolved - TPN increased, pt started on PO diet Expected Outcomes/Goals *MODIFIED* - Monitor tolerance of intake w/ goal of pt meeting at least 75% of estimated needs, labs trending WNL, normal GI function, skin integrity, wt maintenance. Dietitian Recommendations * Modify diet to Cardiac pureed (texture per ST recommendations) * Pureed diet comes w/ Ensure Enlive TID * Encourage PO intake * TPN D30%, AA8.5% at 75 ml/hr (goal rate) via central line Provides: 1226 kcal/day, 77 gm protein/day, 1800 ml total volume/day, and GIR: 2.9 mg CHO/kg/min Meets: 78% of lower end of estimated caloric needs and 99% of upper end of estimated protein needs * D/C TPN when PO intake improves Follow Up High Risk: F/U in 2-3 days
--- NOTE | 2022-01-07 12:36 | NUR ---
Dietitian Recommendations * Modify diet to Cardiac pureed (texture per ST recommendations) * Pureed diet comes w/ Ensure Enlive TID * Encourage PO intake * TPN D30%, AA8.5% at 75 ml/hr (goal rate) via central line Provides: 1226 kcal/day, 77 gm protein/day, 1800 ml total volume/day, and GIR: 2.9 mg CHO/kg/min Meets: 78% of lower end of estimated caloric needs and 99% of upper end of estimated protein needs * D/C TPN when PO intake improves Please refer to Nutrition F/U for details.
--- NOTE | 2022-01-07 15:05 | NUR ---
DR ROSS AT BEDSIDE ORDERED TO D/C TPN ONCE PT CAN CONSUME 50% OR MORE OF HER MEALS.
--- NOTE | 2022-01-07 19:00 | NUR ---
RECD REPORT FROM DESMOND PIZARRO FOR CONTINUITY OF CARE.
[2022-01-07] MEDS ORDERED: TPN CENTRAL 0.0001 ML, SODIUM CHLORIDE 40 MEQ, POTASSIUM CHLORIDE 40 MEQ, K PHOS 18 MM,... IV SCH ×10 (21:00)
--- NOTE | 2022-01-07 22:00 | NUR ---
C/O SHE IS VERY HUNGRY NO BODY FEED HER, SANDWHICH AND PUDDING GIVEN, AND ATE WELL NO PROBLEM SWALLOW GOOD AND HAPPY SHE ATE GOOD..
[2022-01-08] VITALS (25 sets, daily range): BP systolic 132–188
[2022-01-08] MEDS: INSULIN LISPRO SLIDING SCALE 100 UNITS/ML VIAL (humaLOG) SUBCUT PRN ×5 (00:16→23:47)
[2022-01-08] MEDS: metroNIDAZOLE 250 mg/NS 50 ML IV SCH ×3 (04:05→19:50)
[2022-01-08] MEDS: hydrALAZINE HCL 20 MG/ML VIAL IVP PRN ×2 (06:18→21:06)
[2022-01-08 06:24] LABS: ALANINE AMINOTRANSFERASE 45 U/L (12-78); ALBUMIN 2.4 g/dL (3.4-4.8); ANION GAP 9 (5-15); ASPARTATE AMINOTRANSFERASE 40 U/L (10-37); CALCIUM 7.9 mg/dL (8.4-11.0); CHLORIDE 102 mmol/L (98-107); CREATININE 1.57 mg/dL (0.55-1.30); GLUCOSE 247 mg/dL (70-99); PHOSPHORUS 2.9 mg/dL (2.7-4.5); POTASSIUM 4.6 mmol/L (3.5-5.1); SODIUM SERUM 135 mmol/L (136-145); TOTAL BILIRUBIN 0.4 mg/dL (0.0-1.0); UREA NITROGEN, BLOOD 48 mg/dL (8-21)
--- NOTE | 2022-01-08 06:29 | NUR ---
0530 MORNING CARE DONE, COMPLETE BED BATH AND CHG BATH GIVEN, PERICARE AND ORAL CARE DONE, LINEN CHANGED, TURN AND REPOSITION TO COMFORT.
--- NOTE | 2022-01-08 06:30 | NUR ---
0600 BP 178/47 PRN APRESOLINE 10 MG IVP GIVEN., AFEBRILE.
--- NOTE | 2022-01-08 07:20 | NUR ---
Received report from city library director RN, and assumed patient care.
[2022-01-08] MEDS: amLODIPine BESYLATE 10 MG TABLET PO SCH (08:05)
[2022-01-08] MEDS: PANTOPRAZOLE SODIUM 40 MG/VIAL (PROTONIX) IVP SCH (08:05)
[2022-01-08] MEDS: LISINOPRIL 10 MG TABLET (PRINIVIL) PO SCH (08:06)
[2022-01-08] MEDS: CEFTRIAXONE SOD 1 GM/ D5W 50 ML IV SCH ×2 (08:11)
[2022-01-08] MEDS: INSULIN GLARGINE 100 UNITS/ML 10 ML VIAL SUBCUT SCH ×2 (08:15→21:06)
[2022-01-08] MEDS: HEPARIN SODIUM,PORCINE 5,000 UNITS/ML VIAL SUBCUT SCH ×2 (08:18→19:51)
--- NOTE | 2022-01-08 09:00 | NUR ---
Encouraged patient to eat breakfast, and was assisting in feeding but patient refused and only drank ensure. Will reinforce throughout the shift.
--- NOTE | 2022-01-08 10:30 | NUR ---
Attempted to call fruit loader, was not able to olive picker call and will try again about the next information about the placement of cardiac pacemaker. No new orders noted at the moment, will reinforce if needed throughout the shift.
[2022-01-08] MEDS: THEOPHYLLINE ANHYDROUS 200 MG TAB.SR.12H PO SCH ×2 (10:58→21:00)
[2022-01-08 11:09] LABS: PROTHROMBIN TIME 10.1 SECS (9.5-12.5)
--- NOTE | 2022-01-08 13:00 | NUR ---
Encouraged patient to eat lunch, patient ate 20-30% of lunch meal. Patient had no further questions noted at the moment, will reinforce if needed throughout the shift.
--- NOTE | 2022-01-08 14:30 | NUR ---
Dr. Coy at bedside, is aware of updated medical status here in the ICU. Patient was encouraged to eat more of meals, but patient has poor appetite and will reinforce if needed throughout the shift. MD cleared patient to be in telemetry, but waiting for primary MD's order. No additional orders noted at the moment.
--- NOTE | 2022-01-08 17:50 | NUR ---
Dr. Jackson is at bedside and is aware of patient still on the TPN, and elevated blood glucose levels. MD will change orders and will wait for orders to be verified. Will reinforce if needed throughout the shift.
--- NOTE | 2022-01-08 18:20 | NUR ---
PT at bedside, was able to get patient out of bed and stand at the side of bed without complications. Patient tolerated well with out of bed activities, no additional complications or orders noted at the moment. Will reinforce if needed throughout the shift.
--- NOTE | 2022-01-08 19:15 | NUR ---
Opening notes Received report from endorsing morning shift RN Natty for continuity of care. Patient is lying in bed in no signs of distress with TPN @ 60mL/hr. Patient's vital signs blood pressure 162/57, heart rate 53, respirations 24, and SPO2 96% on nasal cannula @4L. Card catheter is in place draining to gravity. Bed is locked and in lowest position, fall and safety precautions is in place.
[2022-01-08] MEDS ORDERED: TPN CENTRAL IV SCH ×10 (21:00)
[2022-01-08] MEDS ORDERED: SODIUM CHLORIDE IV SCH ×10 (21:00)
[2022-01-08] MEDS ORDERED: [UNRECOGNIZED DRUG - OTHER] IV SCH ×10 (21:00)
[2022-01-08] MEDS ORDERED: POTASSIUM CHLORIDE IV SCH ×10 (21:00)
[2022-01-09] VITALS (24 sets, daily range): BP systolic 102–197
[2022-01-09] MEDS: metroNIDAZOLE 250 mg/NS 50 ML IV SCH (03:58)
[2022-01-09] MEDS: hydrALAZINE HCL 20 MG/ML VIAL IVP PRN ×2 (04:06→12:29)
[2022-01-09] MEDS: INSULIN LISPRO SLIDING SCALE 100 UNITS/ML VIAL (humaLOG) SUBCUT PRN ×4 (05:50→23:48)
[2022-01-09 05:59] LABS: BASOPHILS # (AUTO) 0.1 K/uL (0.0-0.2); BASOPHILS % (AUTO) 0.8 % (0.0-2.0); EOSINOPHILS # (AUTO) 0.2 K/uL (0.0-0.4); EOSINOPHILS % (AUTO) 1.9 % (0.0-4.0); HEMATOCRIT 26.3 % (36-48); HEMOGLOBIN 8.8 g/dL (12.0-16.0); LYMPHOCYTES % (AUTO) 15.4 % (20.5-51.5); MEAN CORPUSCULAR HEMOGLOBIN 31 pg (27-31); MEAN CORPUSCULAR HGB CONC 33 % (32-36); MEAN CORPUSCULAR VOLUME 92 fL (79.0-98.0); MONOCYTES % (AUTO) 7.8 % (1.7-9.3); NEUTROPHILS # (AUTO) 9.7 K/uL (1.8-7.7); NEUTROPHILS % (AUTO) 74.1 % (40.0-70.0); PLATELET COUNT (AUTO) 207 K/uL (130-430); RED BLOOD CELL COUNT(AUTO) 2.86 MIL/uL (4.2-6.2); RED CELL DISTRIBUTION WIDTH 14.2 % (9.0-15.0); WHITE BLOOD COUNT (AUTO) 13.1 K/uL (4.8-10.8)
[2022-01-09 06:25] LABS: ALANINE AMINOTRANSFERASE 37 U/L (12-78); ALBUMIN 2.2 g/dL (3.4-4.8); ANION GAP 11 (5-15); ASPARTATE AMINOTRANSFERASE 29 U/L (10-37); CALCIUM 8.1 mg/dL (8.4-11.0); CHLORIDE 105 mmol/L (98-107); CREATININE 1.43 mg/dL (0.55-1.30); GLUCOSE 297 mg/dL (70-99); PHOSPHORUS 2.8 mg/dL (2.7-4.5); POTASSIUM 4.5 mmol/L (3.5-5.1); SODIUM SERUM 137 mmol/L (136-145); TOTAL BILIRUBIN 0.4 mg/dL (0.0-1.0); UREA NITROGEN, BLOOD 44 mg/dL (8-21)
[2022-01-09] MEDS: HEPARIN SODIUM,PORCINE 5,000 UNITS/ML VIAL SUBCUT SCH ×2 (07:45→19:45)
--- NOTE | 2022-01-09 09:09 | NUR ---
holding heparin for pacemaker placement tomorrow.
[2022-01-09] MEDS ORDERED: FUROSEMIDE 20 MG/2 ML VIAL IVP ONE (09:15)
[2022-01-09] MEDS: THEOPHYLLINE ANHYDROUS 200 MG TAB.SR.12H PO SCH ×2 (09:59→21:40)
[2022-01-09] MEDS: CEFTRIAXONE SOD 1 GM/ D5W 50 ML IV SCH ×2 (10:00)
[2022-01-09] MEDS: PANTOPRAZOLE SODIUM 40 MG/VIAL (PROTONIX) IVP SCH (10:00)
--- NOTE | 2022-01-09 10:00 | NUR ---
PER LAWN MOWER SHARPENER REPORT PATIENT WAQAS COOL HAS BEEN CONSENTING FOR THE PATIENT AND DR LISA Rivera WANTED TO HAVE A PACEMAKER PLACED, THE WAQAS COOL SPOKE WITH A NURSE YESTERDAY AND STATED HE DID NOT WANT TO CONSENT TO THE SURGERY UNTIL [place] WAS [place] AND HE COULD SPEAK WITH THE PATIENT AT BEDSIDE AND ALL THE DOCTORS. NOTIFIED DR LISA Rivera THAT SON WANTS TO WAIT UNTIL FRIDAY. PRIMARY RN CALLED [employer] AGAIN AND HAS HIM DISCUSS PACEMAKER PLACEMENT WITH PATIENT AND SON AND PATIENT STATED THEY WANT TO DO THE PACEMAKER PLACEMENT BUT THEY WANT TO DISCUSS WITH MD FIRST. DR LISA Medina IS GOING TO CALL PATIENT AFTER 1000 TO GET CONSENT. ANESTHESIOLOGIST DISCUSSED CONCERN OF ELEVATED WBC WITH DR LISA Rivera IN ADDITION NOTIFIED THAT HEPARIN SQ 5,000U WAS GIVEN LAST NIGHT. LISA Rivera STATED SURGERY WILL MOST LIKELY BE PERFORMED TOMORROW. NOTIFIED DR CUEVA OF INCREASED CONGESTION IN THE LUNGS AND HE ORDERED LASIX 1X DOSE AND STATED IF PATIENT STILL SOUNDS WET NEAR THE END OF SHIFT TO CALL HIM AND GET ANOTHER ONE TIME ORDER FOR LASIX.
[2022-01-09] MEDS: LISINOPRIL 10 MG TABLET (PRINIVIL) PO SCH (10:01)
[2022-01-09] MEDS: amLODIPine BESYLATE 10 MG TABLET PO SCH (10:01)
[2022-01-09] MEDS: INSULIN GLARGINE 100 UNITS/ML 10 ML VIAL SUBCUT SCH ×2 (10:02→21:44)
--- NOTE | 2022-01-09 18:21 | NUR ---
SPOKE WITH DR LISA Medina ON THE PHONE, STATED HE HAS NOT YET SPOKE WITH PATIENT'S SON TRAVON BECAUSE HE IS WAITING TO DISCUSS ELEVATED WBC WITH DR GANDARA TO GET CLEARANCE FOR THE PACEMAKER PLACEMENT.
--- NOTE | 2022-01-09 19:00 | NUR ---
Opening notes Received report from endorsing morning shift DESMOND Lange for continuity of care. Patient is sitting in her bed in no signs of distress with IVF TPN @75mL/hr. Patient's vital signs blood pressure 131/45, heart rate 54, respirations 26, and SPO2 96% on nasal cannula @2L. Card catheter is in place draining to gravity yellow in color. Bed is locked and in lowest position, fall and safety precautions is in place.
--- NOTE | 2022-01-09 20:40 | NUR ---
MD Dr. Walker called, gave verbal report. New order given.
[2022-01-09] MEDS ORDERED: K PHOS IV SCH ×10 (21:00)
[2022-01-09] MEDS ORDERED: SODIUM CHLORIDE IV SCH ×10 (21:00)
[2022-01-09] MEDS ORDERED: POTASSIUM ACETATE IV SCH ×10 (21:00)
[2022-01-09] MEDS ORDERED: TPN CENTRAL IV SCH ×10 (21:00)
[2022-01-09] MEDS ORDERED: [UNRECOGNIZED DRUG - OTHER] IV SCH ×10 (21:00)
--- NOTE | 2022-01-09 22:15 | NUR ---
MD Dr. Eckert is in the unit rounding on patient. Gave verbal report, new order given.
[2022-01-09] MEDS ORDERED: INSULIN NPH 100 UNITS/ML 10 ML VIAL SUBCUT ONE (22:30)
[2022-01-09] MEDS: FLUCONAZOLE 200 mg/ NS 100 ML IV SCH (23:01)
--- NOTE | 2022-01-09 23:01 | NUR ---
I PAGED DR. CUEVA I SPOKE TO NADINE
--- NOTE | 2022-01-09 23:03 | NUR ---
Called Dr. Moody regarding patient's lung sounds. Dr. Jane called back, gave verbal report regarding patient's lung sounds that it is still sound wet. New order given.
[2022-01-09] MEDS ORDERED: FUROSEMIDE 40 MG/4 ML VIAL IVP ONE (23:05)
[2022-01-10] VITALS (24 sets, daily range): BP systolic 127–187
[2022-01-10 05:54] LABS: BASOPHILS # (AUTO) 0.1 K/uL (0.0-0.2); BASOPHILS % (AUTO) 0.9 % (0.0-2.0); EOSINOPHILS # (AUTO) 0.3 K/uL (0.0-0.4); EOSINOPHILS % (AUTO) 2.6 % (0.0-4.0); HEMATOCRIT 24.2 % (36-48); HEMOGLOBIN 8.2 g/dL (12.0-16.0); LYMPHOCYTES # (AUTO) 2.4 K/uL (1.0-5.5); LYMPHOCYTES % (AUTO) 22.5 % (20.5-51.5); MEAN CORPUSCULAR HEMOGLOBIN 32 pg (27-31); MEAN CORPUSCULAR HGB CONC 34 % (32-36); MEAN CORPUSCULAR VOLUME 93 fL (79.0-98.0); MONOCYTES # (AUTO) 0.9 K/uL (0.0-1.0); MONOCYTES % (AUTO) 8.2 % (1.7-9.3); NEUTROPHILS % (AUTO) 65.8 % (40.0-70.0); PLATELET COUNT (AUTO) 197 K/uL (130-430); RED BLOOD CELL COUNT(AUTO) 2.61 MIL/uL (4.2-6.2); RED CELL DISTRIBUTION WIDTH 13.9 % (9.0-15.0); WHITE BLOOD COUNT (AUTO) 10.6 K/uL (4.8-10.8)
[2022-01-10 06:17] LABS: ALANINE AMINOTRANSFERASE 37 U/L (12-78); ALBUMIN 2.3 g/dL (3.4-4.8); ANION GAP 8 (5-15); ASPARTATE AMINOTRANSFERASE 36 U/L (10-37); CALCIUM 7.7 mg/dL (8.4-11.0); CHLORIDE 104 mmol/L (98-107); CREATININE 1.38 mg/dL (0.55-1.30); GLUCOSE 116 mg/dL (70-99); SODIUM SERUM 136 mmol/L (136-145); TOTAL BILIRUBIN 0.3 mg/dL (0.0-1.0); UREA NITROGEN, BLOOD 43 mg/dL (8-21)
[2022-01-10] MEDS: HEPARIN SODIUM,PORCINE 5,000 UNITS/ML VIAL SUBCUT SCH ×3 (07:45→19:54)
--- NOTE | 2022-01-10 07:56 | NUR ---
PHYSICAL THERAPY CO-SIGN The Physical Therapy Progress Notes documented by Medical Records Technician have been reviewed. Reviewed/Co-Signed by: Jose Hermosillo Documentation Done by: KAREEM PAREDES PTA Addendum: 01/10/22 at 0756 by Jose Hermosillo PT Amended: Links added.
[2022-01-10] MEDS: CEFTRIAXONE SOD 1 GM/ D5W 50 ML IV SCH ×2 (08:19)
[2022-01-10] MEDS: PANTOPRAZOLE SODIUM 40 MG/VIAL (PROTONIX) IVP SCH (08:19)
[2022-01-10] MEDS: LISINOPRIL 10 MG TABLET (PRINIVIL) PO SCH ×2 (08:20→09:34)
[2022-01-10] MEDS: THEOPHYLLINE ANHYDROUS 200 MG TAB.SR.12H PO SCH ×3 (08:21→21:35)
[2022-01-10] MEDS: amLODIPine BESYLATE 10 MG TABLET PO SCH ×2 (08:21→09:00)
[2022-01-10] MEDS: INSULIN GLARGINE 100 UNITS/ML 10 ML VIAL SUBCUT SCH ×2 (08:32→21:40)
--- NOTE | 2022-01-10 09:01 | NUR ---
spoke with Dr Lynch the anesthesiologist at bedside with the OR nurse and the patient and a busser #[id number]/ [id number]. discussed anesthesia with patient. RN asked Dr Lynch if he wanted the PO medication including amlodipine, lisinopril, and theophylline to be given before surgery since heart rate it 48 and blood pressure is 159/47. provided phone number to stefany Edward so anesthesia can be discussed with him as well and consent can be signed. earrings removed and placed in secured bag at bedside with patient label on it.
--- NOTE | 2022-01-10 09:09 | NUR ---
Dr Lynch the anesthesiologist stated to give the PO medications after surgery if indicated
--- NOTE | 2022-01-10 10:17 | NUR ---
SPOKE WITH DR LISA Rivera AND DR GILMORE, PATIENT SURGERY IS TO BE POSTPONED UNTIL TOMORROW MORNING AT 9AM, DR GILMORE CLEARED PATIENT FOR SURGERY, NOTIFIED SON TRAVON THAT SURGERY WILL BE PERFORMED TOMORROW MORNING. DR LISA Rivera ORDERED TO CONTINUE DIET AND HAVE PATIENT NPO AT MIDNIGHT WELL TO GIVE HEPARIN INJECTIONS BUT NONE TO BE GIVEN AFTER MIDNIGHT. TPN STILL RUNNING, PATIENT INTAKE IS LESS THAN 50%.
--- NOTE | 2022-01-10 12:12 | NUR ---
Nutritional F/U Admitting Diagnosis CHF, PNA, Heart Block Reviewed Pertinent Medical/Surgical Hx Medical Record Other Medical History Comment: PMH: DM, HTN per physician notes 01/02 - extubated SARS-CoV-2 Ag (Rapid) Negative 12/29 & 01/04 Subjective Information: RD attended ICU rounds this morning. Primary RN reported that pt's pacemaker placement was re-scheduled for tomorrow, pending ID clearance; pt drank about 1/2 of Ensure ONS; TPN ongoing; LBM x1 last night. Per EMR review, pt was extubated 01/02; active bowel sounds; BUE w/ non-pitting edema;on 2 L O2 via NC; Padilla scale: 14 w/ L heel blister noted. Current PO diet and TPN support remains adequate/appropriate. Current Diet Order/Nutrition Support: Pureed, cardiac x1 day & TPN D30%, AA8.5% at 75 ml/hr via central line Patient/Significant Other Unable To Verbalize Pertinent Medications: SSI, heparin, protonix IV, zofran, lisinopril Pertinent Labs: WBC 10.6 WNL, BUN 43 H, CRE 1.38 H, BG 116 H, POC BG 113 H, Ca 7.7 L, Phos 7 WNL, AST 36 WNL, ALB 2.3 L Height (Feet) 5 feet Height (Inches) 3.00 inches Weight (Pounds) 144 pounds -- stable since 12/30 Patient Weight 65.374 kg Body Mass Index 25.51 kg/m2 %IBW 125 [place]/Adjusted Body Weight 115#/52.3 kg Recent Weight Change unable to verify Weight Status Overweight Estimated Energy Expenditure (kcals/day) 4593-3383 (30-35 kcal/kg IBW d/t sepsis) Estimated Protein Required (g/day) 63-78 g/day (1.2-1.5 g/kg IBW d/t sepsis) Estimated Fluid Required (l/day) Per MD d/t HONG Problem/Etiology/Signs/Symptoms Altered nutrition-related labs R/T endocrine and renal dysfunction AEB abnormal BG, POC BG, BUN, and Cr lab values. *Ongoing - off HD Suboptimal nutrition support R/T metabolic demands AEB current TPN order does not meet 75% of estimated nutritional requirements for HD and sepsis. *Resolved - TPN/PO diet Expected Outcomes/Goals - Monitor tolerance of intake w/ goal of pt meeting at least 75% of estimated needs, labs trending WNL, normal GI function, skin integrity, wt maintenance. Dietitian Recommendations * Continue Pureed, cardiac diet until midnight per surgeon (ONS Ensure Enlive TID comes standard w/ Pureed diet -- ONS yields 1050 kcal/day, 60 gm protein/day) * Encourage PO intake * Continue TPN D30%, AA8.5% at 75 ml/hr (goal rate) via central line Provides: 1226 kcal/day, 77 gm protein/day, 1800 ml total volume/day, and GIR: 2.9 mg CHO/kg/min Meets: 78% of lower end of estimated caloric needs and 99% of upper end of estimated protein needs * D/C TPN when PO intake improves Follow Up High Risk: F/U in 2-3 days
[2022-01-10] MEDS: INSULIN LISPRO SLIDING SCALE 100 UNITS/ML VIAL (humaLOG) SUBCUT PRN ×3 (12:15→23:42)
--- NOTE | 2022-01-10 12:18 | NUR ---
Dietitian Recommendations * Continue Pureed, cardiac diet until midnight per surgeon (ONS Ensure Enlive TID comes standard w/ Pureed diet -- ONS yields 1050 kcal/day, 60 gm protein/day) * Encourage PO intake * Continue TPN D30%, AA8.5% at 75 ml/hr (goal rate) via central line Provides: 1226 kcal/day, 77 gm protein/day, 1800 ml total volume/day, and GIR: 2.9 mg CHO/kg/min Meets: 78% of lower end of estimated caloric needs and 99% of upper end of estimated protein needs * D/C TPN when PO intake improves LP, RD Please refer to Nutrition F/U for details.
[2022-01-10] MEDS: hydrALAZINE HCL 20 MG/ML VIAL IVP PRN (14:16)
--- NOTE | 2022-01-10 19:30 | NUR ---
RECEIVED REPORT ON PATIENT FROM DESMOND POMPA, ASSUMED CARE, AND STARTED ASSESSMENT.
[2022-01-10] MEDS ORDERED: [UNRECOGNIZED DRUG - OTHER] IV SCH ×10 (21:00)
[2022-01-10] MEDS ORDERED: SODIUM CHLORIDE IV SCH ×10 (21:00)
[2022-01-10] MEDS ORDERED: TPN CENTRAL IV SCH ×10 (21:00)
[2022-01-10] MEDS ORDERED: POTASSIUM ACETATE IV SCH ×10 (21:00)
[2022-01-10] MEDS ORDERED: K PHOS IV SCH ×10 (21:00)
[2022-01-10] MEDS: FLUCONAZOLE 200 mg/ NS 100 ML IV SCH (23:31)
[2022-01-11] VITALS (22 sets, daily range): BP systolic 121–179
[2022-01-11] MEDS: hydrALAZINE HCL 20 MG/ML VIAL IVP PRN (01:16)
--- NOTE | 2022-01-11 05:30 | NUR ---
COMPLETE BED BATH AND COMPLETE LINEN CHANGE GIVEN. PATIENT HAD A MODERATE FORMED DARK B ROWN BOWEL MOVEMENT. WILL CONTINUE TO MONITOR AND ASSESS FOR SAFETY AND COMFORT.
[2022-01-11] MEDS: INSULIN LISPRO SLIDING SCALE 100 UNITS/ML VIAL (humaLOG) SUBCUT PRN ×2 (06:01→12:07)
[2022-01-11 06:26] LABS: PROTHROMBIN TIME 10.2 SECS (9.5-12.5)
[2022-01-11 06:42] LABS: ALANINE AMINOTRANSFERASE 40 U/L (12-78); ALBUMIN 2.4 g/dL (3.4-4.8); ANION GAP 8 (5-15); ASPARTATE AMINOTRANSFERASE 35 U/L (10-37); CALCIUM 7.7 mg/dL (8.4-11.0); CHLORIDE 103 mmol/L (98-107); CREATININE 1.45 mg/dL (0.55-1.30); GLUCOSE 193 mg/dL (70-99); PHOSPHORUS 4.1 mg/dL (2.7-4.5); POTASSIUM 4.1 mmol/L (3.5-5.1); SODIUM SERUM 134 mmol/L (136-145); TOTAL BILIRUBIN 0.2 mg/dL (0.0-1.0); UREA NITROGEN, BLOOD 42 mg/dL (8-21)
--- NOTE | 2022-01-11 07:29 | NUR ---
REPORT GIVEN TO DESMOND POMPA, AND CARE WAS TURNED OVER TO HER.
--- NOTE | 2022-01-11 07:30 | NUR ---
PHYSICAL THERAPY CO-SIGN The Physical Therapy Progress Notes documented by Dynamite Packing Machine Operator have been reviewed. Reviewed/Co-Signed by: Jose Hermosillo Documentation Done by: AUGUSTIN PAREDES PTA Addendum: 01/11/22 at 0730 by Jose Hermosillo PT Amended: Links added.
[2022-01-11] MEDS: HEPARIN SODIUM,PORCINE 5,000 UNITS/ML VIAL SUBCUT SCH ×2 (07:45→21:25)
[2022-01-11] MEDS: THEOPHYLLINE ANHYDROUS 200 MG TAB.SR.12H PO SCH ×2 (08:03→21:29)
[2022-01-11] MEDS: PANTOPRAZOLE SODIUM 40 MG/VIAL (PROTONIX) IVP SCH (08:03)
[2022-01-11] MEDS: amLODIPine BESYLATE 10 MG TABLET PO SCH (08:05)
[2022-01-11] MEDS: LISINOPRIL 10 MG TABLET (PRINIVIL) PO SCH (08:05)
[2022-01-11] MEDS: CEFTRIAXONE SOD 1 GM/ D5W 50 ML IV SCH ×2 (08:06)
[2022-01-11] MEDS: INSULIN GLARGINE 100 UNITS/ML 10 ML VIAL SUBCUT SCH ×2 (08:06→21:21)
--- NOTE | 2022-01-11 09:05 | NUR ---
patient taken to OR for pacemaker placement.
--- NOTE | 2022-01-11 09:05 | NUR ---
PATIENT IN BED, NO S/S OF DISTRESS, A/OX3-4, MOMENTS OF CONFUSION, R WRIST 20G INTACT PATENT, LEFT IJ TRIPLE LUMEN WITH 2 OF THE 3 PORTS FLUSHING, BLUE PORT IS OCCLUDED, DUNN DRAINING CLEAR YELLOW URINE, SKIN INTACT, LEFT HEEL BLISTER INTACT WITH DRESSING IN PLACE, ON 2L NASAL CANULA, 3RD DEGREE HEART BLOCK SCHEDULED FOR CARDIAC PACEMAKER PLACEMENT AT 0900 TODAY, PREOP CARE PERFORMED, EARRING AT BEDSIDE IN LABELED BAG, SAFETY MEASURES IN PLACE, WILL CONTINUE TO MONITOR.
[2022-01-11] MEDS ORDERED: VANCOMYCIN HCL 1000 MG/VIAL IV ONE (09:19)
[2022-01-11] MEDS ORDERED: METOCLOPRAMIDE HCL 10 MG/2 ML VIAL IVP ONE (09:19)
[2022-01-11] MEDS ORDERED: MIDAZOLAM HCL 5 MG/5 ML VIAL IVP ONE (09:19)
[2022-01-11] MEDS ORDERED: NS 1000 ML IV.SOLN IV ONE (09:19)
[2022-01-11] MEDS ORDERED: LIDOCAINE/EPI 1% 1:100000 20 ML VIAL INJ ONE (09:19)
[2022-01-11] MEDS ORDERED: PROPOFOL 200MG/ 20ML VIAL (DIPRIVAN) IV ONE (09:19)
[2022-01-11] MEDS ORDERED: LIDOCAINE 1% 10 MG/ML, 20 ML MDV INJ ONE (09:19)
[2022-01-11] MEDS ORDERED: LABETALOL 100 MG/ 20ML VIAL IV ONE (09:19)
[2022-01-11] MEDS ORDERED: ONDANSETRON HCL 4 MG/2 ML VIAL IVP ONE (09:19)
[2022-01-11] MEDS ORDERED: DEXAMETHASONE SOD PHOSPHATE 4 MG/ML VIAL IVP ONE (09:19)
[2022-01-11] MEDS ORDERED: dilTIAZem HCL IVP 5 MG/ML VIAL IV ONE (09:19)
[2022-01-11] MEDS ORDERED: fentaNYL CITRATE 250 MCG/5 ML AMP IV ONE (09:19)
[2022-01-11] MEDS ORDERED: dilTIAZem HCL IVP 5 MG/ML VIAL ONE (10:56)
--- NOTE | 2022-01-11 11:20 | NUR ---
PATIENT RETURNED FROM OR, NO S/S OF DISTRESS, ON 2L FACE MASK, VITALS STABLE, RECEIVED REPORT FROM OR NURSE AND DR NG. PATIENT RECEIVED MAC SEDATION OF MIDAZOLAM, PHENTANYL, PROPOFOL, AND LOCAL ANESTHETIC OF LIDOCAINE 1%. VANCOMYCIN 1GM IV GIVEN. RECEIVED LABETALOL AND DILTIAZEM POST OP FOR INCREASED HR/BP. IN ADDITION REGLAN, DECADRON, AND ZOFRAN GIVEN. DRESSING TO THE LEFT UPPER CHEST OF 4X4 GAUZE, STERISTRIPS, AND MEDIPORT TAPE. DRESSING IS CLEAN DRY AND INTACT. DRESSING IS CLEAN, DRY, AND INTACT. NO REPORT OF PAIN AT THIS TIME, WILL CONTINUE TO MONITOR.
--- NOTE | 2022-01-11 19:28 | NUR ---
Bedside report received from Bharat RN at the bedside, permanent pacemaker placed today via left chest site dry intact with dressing V-PACED with intrinsic beat SINUS tachycardia, O2 2LNC, via nasal canula O2 SAT 95% diminished lungs sounds grunting sounds awake alert follows command moves all extremities, vitals signs stable low grade fever 100.2F orally will continue to monitor and treat as per care plan.
[2022-01-11] MEDS ORDERED: TPN CENTRAL IV SCH ×10 (21:00)
[2022-01-11] MEDS ORDERED: POTASSIUM ACETATE IV SCH ×10 (21:00)
[2022-01-11] MEDS ORDERED: [UNRECOGNIZED DRUG - OTHER] IV SCH ×10 (21:00)
[2022-01-11] MEDS ORDERED: K PHOS IV SCH ×10 (21:00)
[2022-01-11] MEDS ORDERED: SODIUM CHLORIDE IV SCH ×10 (21:00)
[2022-01-11] MEDS: FLUCONAZOLE 200 mg/ NS 100 ML IV SCH (21:28)
[2022-01-11] MEDS: ACETAMINOPHEN 325 MG TABLET PO PRN (21:29)
--- NOTE | 2022-01-11 22:15 | NUR ---
[employer] language arts teacher TERESITA #[id number] used for pt's assessment and to verbalized her concerns.
--- NOTE | 2022-01-11 23:00 | NUR ---
Complete CHG bed bath given linen changed , Addendum: 01/12/22 at 0049 by Cecile Brunson RN pt tolerated well no complain assisted with repositioning, also blister wound noted on the pt's left heel covered with foam and elevated on pillow
[2022-01-11] MEDS: LevALBUTEROL HCL 1.25 MG/0.5 ML *CONC.* VIAL.NEB (XOPENEX CONC.) INH PRN (23:42)
[2022-01-12] VITALS (24 sets, daily range): BP systolic 122–160
[2022-01-12] MEDS: INSULIN LISPRO SLIDING SCALE 100 UNITS/ML VIAL (humaLOG) SUBCUT PRN ×2 (00:39→06:05)
[2022-01-12] MEDS: HEPARIN SODIUM,PORCINE 5,000 UNITS/ML VIAL SUBCUT SCH ×2 (06:36→20:47)
[2022-01-12 06:39] LABS: ALANINE AMINOTRANSFERASE 30 U/L (12-78); ALBUMIN 2.3 g/dL (3.4-4.8); ANION GAP 10 (5-15); ASPARTATE AMINOTRANSFERASE 25 U/L (10-37); CALCIUM 7.5 mg/dL (8.4-11.0); CHLORIDE 108 mmol/L (98-107); CREATININE 1.28 mg/dL (0.55-1.30); GLUCOSE 266 mg/dL (70-99); PHOSPHORUS 3.4 mg/dL (2.7-4.5); POTASSIUM 4.6 mmol/L (3.5-5.1); SODIUM SERUM 140 mmol/L (136-145); TOTAL BILIRUBIN 0.2 mg/dL (0.0-1.0); UREA NITROGEN, BLOOD 38 mg/dL (8-21)
--- NOTE | 2022-01-12 07:35 | NUR ---
Change of shift SBAR at bedside given to Sarah RN as at this time pt awake vitals signs stable no sign of distress and no changes in care plan.
[2022-01-12] MEDS: LISINOPRIL 10 MG TABLET (PRINIVIL) PO SCH (09:27)
[2022-01-12] MEDS: amLODIPine BESYLATE 10 MG TABLET PO SCH (09:27)
[2022-01-12] MEDS: THEOPHYLLINE ANHYDROUS 200 MG TAB.SR.12H PO SCH (09:27)
[2022-01-12] MEDS: CEFTRIAXONE SOD 1 GM/ D5W 50 ML IV SCH ×2 (09:29)
[2022-01-12] MEDS: PANTOPRAZOLE SODIUM 40 MG/VIAL (PROTONIX) IVP SCH (09:29)
[2022-01-12] MEDS: INSULIN GLARGINE 100 UNITS/ML 10 ML VIAL SUBCUT SCH ×2 (09:42→20:48)
[2022-01-12] MEDS ORDERED: FUROSEMIDE 20 MG/2 ML VIAL IVP ONE (11:05)
[2022-01-12] MEDS: LevALBUTEROL HCL 1.25 MG/0.5 ML *CONC.* VIAL.NEB (XOPENEX CONC.) INH PRN (11:48)
[2022-01-12] MEDS ORDERED: METOPROLOL SUCCINATE 50 MG TAB.SR.24H (TOPROL XL) PO ONE (12:00)
[2022-01-12] MEDS ORDERED: MAG-AL HYDROX/SIMETH 30 ML UDC PO PRN (12:45)
[2022-01-12] MEDS: ACETAMINOPHEN 325 MG TABLET PO PRN (12:49)
[2022-01-12] MEDS ORDERED: PANTOPRAZOLE SODIUM 40 MG TAB PO ONE (13:00)
--- NOTE | 2022-01-12 19:34 | NUR ---
Change of shift report received from Sarah RN, pt asleep but responded to voice command vitals signs stable afebrile denies pain, left upper chest permanent pacemaker site dry and intact, HR in 90's intrinsic beat is NSR v paced on the monitor. Pt refused to eat her dinner generalized weakness moves all extremities. Also noted central line dressing is rough as patient scratching the site, assisted with repositioning in bed ongoing support to alleviates anxiety, monitoring and treat.
[2022-01-12] MEDS: FLUCONAZOLE 200 mg/ NS 100 ML IV SCH (20:46)
[2022-01-12] MEDS ORDERED: TPN CENTRAL IV SCH ×10 (21:00)
[2022-01-12] MEDS ORDERED: [UNRECOGNIZED DRUG - OTHER] IV SCH ×10 (21:00)
[2022-01-12] MEDS ORDERED: K PHOS IV SCH ×10 (21:00)
[2022-01-12] MEDS ORDERED: SODIUM CHLORIDE IV SCH ×10 (21:00)
[2022-01-12] MEDS ORDERED: POTASSIUM ACETATE IV SCH ×10 (21:00)
--- NOTE | 2022-01-12 22:15 | NUR ---
Discussed with Dr Ly to remove left internal jugular central line and placed PICC. Order received, pt's son VANESSA notified and consent obtained witnessed by two RNS.
[2022-01-13] VITALS (14 sets, daily range): BP systolic 124–175
[2022-01-13] MEDS: ACETAMINOPHEN 325 MG TABLET PO PRN (05:08)
[2022-01-13] MEDS: hydrALAZINE HCL 20 MG/ML VIAL IVP PRN (05:09)
[2022-01-13 06:32] LABS: BASOPHILS # (AUTO) 0.1 K/uL (0.0-0.2); BASOPHILS % (AUTO) 0.6 % (0.0-2.0); EOSINOPHILS # (AUTO) 0.1 K/uL (0.0-0.4); EOSINOPHILS % (AUTO) 0.6 % (0.0-4.0); HEMATOCRIT 23.3 % (36-48); HEMOGLOBIN 7.7 g/dL (12.0-16.0); LYMPHOCYTES # (AUTO) 2.1 K/uL (1.0-5.5); LYMPHOCYTES % (AUTO) 16.8 % (20.5-51.5); MEAN CORPUSCULAR HEMOGLOBIN 32 pg (27-31); MEAN CORPUSCULAR HGB CONC 33 % (32-36); MEAN CORPUSCULAR VOLUME 95 fL (79.0-98.0); MONOCYTES # (AUTO) 1.1 K/uL (0.0-1.0); MONOCYTES % (AUTO) 8.9 % (1.7-9.3); NEUTROPHILS # (AUTO) 9.1 K/uL (1.8-7.7); NEUTROPHILS % (AUTO) 73.1 % (40.0-70.0); PLATELET COUNT (AUTO) 283 K/uL (130-430); RED BLOOD CELL COUNT(AUTO) 2.46 MIL/uL (4.2-6.2); WHITE BLOOD COUNT (AUTO) 12.4 K/uL (4.8-10.8)
[2022-01-13 06:46] LABS: ALANINE AMINOTRANSFERASE 33 U/L (12-78); ALBUMIN 2.5 g/dL (3.4-4.8); ANION GAP 10 (5-15); ASPARTATE AMINOTRANSFERASE 35 U/L (10-37); CALCIUM 8.2 mg/dL (8.4-11.0); CHLORIDE 108 mmol/L (98-107); CREATININE 1.15 mg/dL (0.55-1.30); GLUCOSE 51 mg/dL (70-99); SODIUM SERUM 141 mmol/L (136-145); TOTAL BILIRUBIN 0.3 mg/dL (0.0-1.0); UREA NITROGEN, BLOOD 29 mg/dL (8-21)
--- NOTE | 2022-01-13 07:08 | NUR ---
pt's blood sugar was 49, D50 IVP given later rechecked later was [address] QUINTEROS SAYED three times no call back received. Notified Dr ROSS order received to hang D5NS @50ML/HR, to discontinue LANTUS SQ , and PT /OT to increase mobility all passed on to day shift DESMOND Penny to follow up.
--- NOTE | 2022-01-13 07:20 | NUR ---
RECEIVED PT FROM DESMOND NIELSEN, ASSUMED CARE. PT IS AAOX2-3. PUPILS 3MM EQUAL BILATERALLY. PT VERBALLY RESPONSIVE, CAN COMMUNICATE NEEDS AND FOLLOW SIMPLE COMMANDS. PT 100% PACED WITH UNDERLYING NSR. HR 80s. RESP E/U. LUNG SOUNDS CTA, DIMINISHED BILATERAL BASES. ON N/C 2LPM. NO COUGH OR SOB NOTED. PT ON PUREE DIET. NOC NURSE REPORTS PT SB WAS 49 THIS AM, REPORTED THAT DR. ROSS STATED TO HOLD PT MORNING LANTUS D5 NS TO BE STARTED AT 50CC/HOUR. ABDOMEN SOFT, NONTENDER, NONDISTENDED. BOWEL SOUNDS ACTIVE X4 QUADS. PT NO PUREE DIET. DUNN CATH IN PLACE DRAINING CLEAR YELLOW URINE, PATENT AND SECURED. CENTRAL LINE IN PL[facility] TO [facility], SITE SHOWS SIGNS OF REDNESS, NEW DRESSING PLACED BY NOC SHIFT NURSE. WILL REPORT TO DR. CUEVA, PT MAY NEED CENTRAL D/C'D AND PICC LINE PLACED. PT DENIES PAIN. CALL LIGHT WITHIN REACH.
--- NOTE | 2022-01-13 07:20 | NUR ---
IRVIN LOGAN called about the PICC line to get Dr CUEVA to okay insertion of the PICC also passed it on in report to Nubia to follow up.
[2022-01-13] MEDS: D5NS 1,000 ML IV SCH (08:32)
[2022-01-13] MEDS: CEFTRIAXONE SOD 1 GM/ D5W 50 ML IV SCH ×2 (08:33)
[2022-01-13] MEDS: PANTOPRAZOLE SODIUM 40 MG TAB PO SCH (08:33)
[2022-01-13] MEDS: METOPROLOL SUCCINATE 50 MG TAB.SR.24H (TOPROL XL) PO SCH (08:34)
[2022-01-13] MEDS: LISINOPRIL 10 MG TABLET (PRINIVIL) PO SCH (08:34)
[2022-01-13] MEDS: HEPARIN SODIUM,PORCINE 5,000 UNITS/ML VIAL SUBCUT SCH ×2 (08:37→19:41)
[2022-01-13] MEDS: LevALBUTEROL HCL 1.25 MG/0.5 ML *CONC.* VIAL.NEB (XOPENEX CONC.) INH PRN (09:20)
--- NOTE | 2022-01-13 09:30 | NUR ---
SCHEDULED MED GIVEN AND TOLERATED WELL. PT HAS UPPER LOBE RHONCHI AND WHEEZE, RT AT CALLED TO BEDSIDE AND WILL GIVE BREATHING TX. PT DENIES PAIN.
--- NOTE | 2022-01-13 09:56 | NUR ---
PT BEING MOVED TO [facility] ROOM 103 A. CALLED TO MAKE FAMILY MEMBER AWARE, LEFT MESSAGE ON VOICEMAIL OF CASSIE COOL. AWAITING CALL BACK. PT TAKEN TO [facility] AT THIS TIME.
[2022-01-13 10:54] LABS: ANION GAP 6 (5-15); CALCIUM 8.1 mg/dL (8.4-11.0); CHLORIDE 109 mmol/L (98-107); CREATININE 1.16 mg/dL (0.55-1.30); GLUCOSE 155 mg/dL (70-99); POTASSIUM 4.8 mmol/L (3.5-5.1); SODIUM SERUM 139 mmol/L (136-145); UREA NITROGEN, BLOOD 30 mg/dL (8-21)
[2022-01-13] MEDS ORDERED: FUROSEMIDE 20 MG/2 ML VIAL IVP ONE (11:15)
--- NOTE | 2022-01-13 11:18 | NUR ---
PT ENDORSED TO DESMOND HUGHES. ALL QUESTIONS AND CONCERNS ADDRESSED.
--- NOTE | 2022-01-13 17:50 | NUR ---
Nutrition F/U Admitting Diagnosis CHF, PNA, Heart Block Reviewed Pertinent Medical/Surgical Hx Medical Record Patient Medical History Comment: PMH: DM, HTN per physician notes 01/02 - extubated SARS-CoV-2 Ag (Rapid) Negative 12/29 & 01/04 Subjective Information: RD rounded to pt's room this afternoon -- pt was sleeping soundly. No family present. Pt is no longer receiving TPN, completed yesterday, 01/12. Pt's primary RN was busy tending to another pt at time of RD rounds to unit. Per EMR review, pt had pacemaker placement in OR 01/11; pt is on 2 L O2 via NC; LBM x1 01/10; Padilla scale: 16 w/ wound to L heel. Current diet remains appropriate, though pt is not yet meeting optimal nutritional needs. Current Diet Order/Nutrition Support: Pureed, cardiac x1 day & TPN D30%, AA8.5% at 75 ml/hr via central line Patient/Significant Other Unable To Verbalize Pertinent Medications: SSI, heparin, protonix, zofran, lisinopril, D5%NS at 50 ml/hr (204 kcal/day), mylanta, zofran Pertinent Labs: WBC 12.4 H, BUN 30 H, CRE 1.16 WNL, BG 155 H, POC BG 166 H, Ca 8.1 L, ALB 2.5 L Height (Feet) 5 feet Height (Inches) 3.00 inches Weight (Pounds) 144 pounds -- stable since 12/30 Patient Weight 65.374 kg Body Mass Index 25.51 kg/m2 %IBW 125 [place]/Adjusted Body Weight 115#/52.3 kg Recent Weight Change unable to verify Weight Status Overweight Estimated Energy Expenditure (kcals/day) 0231-6225 (30-35 kcal/kg IBW d/t sepsis) Estimated Protein Required (g/day) 63-78 g/day (1.2-1.5 g/kg IBW d/t sepsis) Estimated Fluid Required (l/day) Per MD d/t HONG Problem/Etiology/Signs/Symptoms Altered nutrition-related labs R/T endocrine and renal dysfunction AEB abnormal BG, POC BG, BUN, and Cr lab values. *Ongoing - off HD Suboptimal nutrition support R/T metabolic demands AEB current TPN order does not meet 75% of estimated nutritional requirements for HD and sepsis. *Resolved - TPN/PO diet Expected Outcomes/Goals - Monitor tolerance of intake w/ goal of pt meeting at least 75% of estimated needs, labs trending WNL, normal GI function, skin integrity, wt maintenance. Dietitian Recommendations * Continue Pureed, cardiac diet (ONS Ensure Enlive TID comes standard w/ Pureed diet -- ONS yields 1050 kcal/day, 60 gm protein/day) * Encourage PO intake Follow Up High Risk: F/U in 2-3 days Addendum: 01/13/22 at [address] Nutrition Consult received 01/12/22 5013 d/t wound to Laisha christy
--- NOTE | 2022-01-13 17:57 | NUR ---
Dietitian Recommendations * Continue Pureed, cardiac diet (ONS Ensure Enlive TID comes standard w/ Pureed diet -- ONS yields 1050 kcal/day, 60 gm protein/day) * Encourage PO intake LP, RD Please refer to Nutrition F/U for details.
--- NOTE | 2022-01-13 19:15 | NUR ---
OPENING NOTE REPORT RECEIVED FROM [facility]. PATIENT IN BED, AWAKE, BEING FED BY DAUGHTER, TAMEKA. NO S/S OF ACUTE DISTRESS, PATIENT DENIES PAIN. BREATHING EVEN AND UNLABORED. IVF INFUSING WELL. IV SITE PATENT, NO SIGNS OF INFILTRATION OR INFECTION NOTED. DUNN ATTACHED, SECURED, AND DRAINING BY GRAVITY. CALL LIGHT WITH PATIENT. BED ALARM ON. BED IS LOCKED AND AT LOWEST POSITION. WILL CONTINUE TO MONITOR.
[2022-01-13] MEDS: FLUCONAZOLE 200 mg/ NS 100 ML IV SCH (22:25)
[2022-01-14] VITALS (7 sets, daily range): BP systolic 130–165
[2022-01-14] MEDS: D5NS 1,000 ML IV SCH ×2 (03:32→23:33)
--- NOTE | 2022-01-14 06:22 | NUR ---
CLOSING NOTE PATIENT IN BED, SLEEPING COMFORTABLY, NO S/S OF ACUTE DISTRESS NOTED. BREATHING EVEN AND UNLABORED, HOB RAISED, NASAL CANULA ATTACHED PROPERLY, ON 2L OF OXYGEN. IVF INFUSING WELL, IV SITE PATENT, NO SIGNS OF INFILTRATION OR INFECTION NOTED. DUNN ATTACHED, SECURED, AND DRAINING BY GRAVITY. ALL NEEDS MET THROUGHOUT SHIFT. FALL, SAFETY PRECAUTIONS MAINTAINED THROUGHOUT SHIFT. WILL CONTINUE TO MONITOR UNTIL PATIENT CARE IS ENDORSED TO ONCOMING DAYSHIFT NURSE.
[2022-01-14 07:52] LABS: EOSINOPHILS # (AUTO) 0.1 K/uL (0.0-0.4); EOSINOPHILS % (AUTO) 2.9 % (0.0-4.0); HEMOGLOBIN 7.3 g/dL (12.0-16.0); LYMPHOCYTES # (AUTO) 1.4 K/uL (1.0-5.5); LYMPHOCYTES % (AUTO) 27.7 % (20.5-51.5); MEAN CORPUSCULAR HEMOGLOBIN 32 pg (27-31); MEAN CORPUSCULAR HGB CONC 34 % (32-36); MEAN CORPUSCULAR VOLUME 95 fL (79.0-98.0); MONOCYTES # (AUTO) 0.4 K/uL (0.0-1.0); MONOCYTES % (AUTO) 8.4 % (1.7-9.3); PLATELET COUNT (AUTO) 232 K/uL (130-430); RED BLOOD CELL COUNT(AUTO) 2.27 MIL/uL (4.2-6.2); RED CELL DISTRIBUTION WIDTH 14.9 % (9.0-15.0); WHITE BLOOD COUNT (AUTO) 5.1 K/uL (4.8-10.8)
[2022-01-14 08:19] LABS: ALANINE AMINOTRANSFERASE 31 U/L (12-78); ALBUMIN 2.2 g/dL (3.4-4.8); ANION GAP 6 (5-15); ASPARTATE AMINOTRANSFERASE 37 U/L (10-37); CHLORIDE 107 mmol/L (98-107); CREATININE 1.05 mg/dL (0.55-1.30); GLUCOSE 74 mg/dL (70-99); SODIUM SERUM 138 mmol/L (136-145); TOTAL BILIRUBIN 0.2 mg/dL (0.0-1.0); UREA NITROGEN, BLOOD 19 mg/dL (8-21)
[2022-01-14] MEDS: LISINOPRIL 10 MG TABLET (PRINIVIL) PO SCH (08:57)
[2022-01-14] MEDS: METOPROLOL SUCCINATE 50 MG TAB.SR.24H (TOPROL XL) PO SCH (08:57)
[2022-01-14] MEDS: PANTOPRAZOLE SODIUM 40 MG TAB PO SCH (08:58)
[2022-01-14] MEDS: HEPARIN SODIUM,PORCINE 5,000 UNITS/ML VIAL SUBCUT SCH ×2 (09:00→23:41)
[2022-01-14] MEDS: CEFTRIAXONE SOD 1 GM/ D5W 50 ML IV SCH ×2 (09:03)
[2022-01-14 09:13] LABS: BASOPHILS % (AUTO) 0.2 % (0.0-2.0); HEMATOCRIT 21.5 % (36-48); NEUTROPHILS % (AUTO) 60.8 % (40.0-70.0)
[2022-01-14 09:14] LABS: NEUTROPHILS # (AUTO) 3.2 K/uL (1.8-7.7)
[2022-01-14] MEDS: INSULIN LISPRO SLIDING SCALE 100 UNITS/ML VIAL (humaLOG) SUBCUT PRN ×2 (12:35→18:25)
[2022-01-14] MEDS: FLUCONAZOLE 200 mg/ NS 100 ML IV SCH (23:32)
[2022-01-14] MEDS: MEGESTROL ACETATE 400 MG/10 ML UDC PO SCH (23:32)
[2022-01-15] MEDS: HEPARIN SODIUM,PORCINE 5,000 UNITS/ML VIAL SUBCUT SCH ×2 (06:05→09:48)
[2022-01-15] MEDS: INSULIN LISPRO SLIDING SCALE 100 UNITS/ML VIAL (humaLOG) SUBCUT PRN ×2 (06:09→18:29)
[2022-01-15 06:20] LABS: BASOPHILS % (AUTO) 1.2 % (0.0-2.0); EOSINOPHILS # (AUTO) 0.1 K/uL (0.0-0.4); EOSINOPHILS % (AUTO) 2.4 % (0.0-4.0); HEMATOCRIT 22.1 % (36-48); HEMOGLOBIN 7.6 g/dL (12.0-16.0); LYMPHOCYTES # (AUTO) 1.1 K/uL (1.0-5.5); LYMPHOCYTES % (AUTO) 26.6 % (20.5-51.5); MEAN CORPUSCULAR HEMOGLOBIN 32 pg (27-31); MEAN CORPUSCULAR HGB CONC 34 % (32-36); MEAN CORPUSCULAR VOLUME 93 fL (79.0-98.0); MONOCYTES # (AUTO) 0.3 K/uL (0.0-1.0); MONOCYTES % (AUTO) 7.9 % (1.7-9.3); NEUTROPHILS # (AUTO) 2.5 K/uL (1.8-7.7); NEUTROPHILS % (AUTO) 61.9 % (40.0-70.0); PLATELET COUNT (AUTO) 255 K/uL (130-430); RED BLOOD CELL COUNT(AUTO) 2.39 MIL/uL (4.2-6.2); RED CELL DISTRIBUTION WIDTH 14.4 % (9.0-15.0)
[2022-01-15 06:42] LABS: ANION GAP 8 (5-15); CALCIUM 8.9 mg/dL (8.4-11.0); CHLORIDE 103 mmol/L (98-107); CREATININE 0.94 mg/dL (0.55-1.30); GLUCOSE 230 mg/dL (70-99); POTASSIUM 3.7 mmol/L (3.5-5.1); SODIUM SERUM 134 mmol/L (136-145); UREA NITROGEN, BLOOD 18 mg/dL (8-21)
[2022-01-15 07:10] LABS: TOTAL IRON BIND. CAPACITY 191 ug/dL (250-450)
[2022-01-15 08:00] VITALS: BP_SYST 158
[2022-01-15] MEDS: MEGESTROL ACETATE 400 MG/10 ML UDC PO SCH ×2 (09:45→20:44)
[2022-01-15] MEDS: CEFTRIAXONE SOD 1 GM/ D5W 50 ML IV SCH ×2 (09:46)
[2022-01-15] MEDS: PANTOPRAZOLE SODIUM 40 MG TAB PO SCH (09:49)
[2022-01-15] MEDS: LISINOPRIL 10 MG TABLET (PRINIVIL) PO SCH (09:49)
[2022-01-15] MEDS: METOPROLOL SUCCINATE 50 MG TAB.SR.24H (TOPROL XL) PO SCH (09:49)
[2022-01-15 11:31] VITALS: BP_SYST 152
[2022-01-15] MEDS: ACETAMINOPHEN 325 MG TABLET PO PRN (14:27)
--- NOTE | 2022-01-15 14:33 | NUR ---
DAUGHTER AT BEDSIDE. PT C/O R NECK PAIN 04/29. PHYSICAL THERAPY AT BEDSIDE ATTEMPTING TO THIRD STEEL POURER PT THROUGH NECK MUSCLE RELAXATION EXERCISES. PT MEDICATED PER MD ORDER.
[2022-01-15 15:21] VITALS: BP_SYST 141
[2022-01-15 16:00] VITALS: BP_SYST 132
[2022-01-15 18:38] VITALS: BP_SYST 148
[2022-01-15 20:00] VITALS: BP_SYST 155
--- NOTE | 2022-01-15 20:25 | NUR ---
Change of shift report received from marjorie RN, pt asleep but responded to voice command vitals signs stable afebrile denies pain, left upper chest permanent pacemaker site dry and intact, HR in 90's intrinsic beat is NSR v paced on the monitor. generalized weakness moves all extremities, pt seemingly uncomfortable in laying down. central line dressing is rough as patient scratching the site, to be Dcd once pt realiezes to calm down during DC. assisted with repositioning in bed ongoing support to alleviates anxiety, monitoring and treat. Will monitor pt anxiousness upon IJ DC.
[2022-01-15] MEDS: FLUCONAZOLE 200 mg/ NS 100 ML IV SCH (20:44)
[2022-01-16 00:24] VITALS: BP_SYST 172
[2022-01-16] MEDS: ACETAMINOPHEN 325 MG TABLET PO PRN (00:25)
[2022-01-16] MEDS: hydrALAZINE HCL 20 MG/ML VIAL IVP PRN ×2 (00:26→20:57)
[2022-01-16] MEDS: INSULIN LISPRO SLIDING SCALE 100 UNITS/ML VIAL (humaLOG) SUBCUT PRN ×3 (00:37→12:27)
--- NOTE | 2022-01-16 07:33 | NUR ---
PHYSICAL THERAPY CO-SIGN The Physical Therapy Progress Notes documented by Environmental Engineer have been reviewed. Reviewed/Co-Signed by: Jose Hermosillo Documentation Done by: AUGUSTIN PAREDES PTA Addendum: 01/16/22 at 6134 by Jose Hermosillo PT Amended: Links added.
[2022-01-16] MEDS: HEPARIN SODIUM,PORCINE 5,000 UNITS/ML VIAL SUBCUT SCH (07:45)
[2022-01-16] MEDS: MEGESTROL ACETATE 400 MG/10 ML UDC PO SCH (08:35)
[2022-01-16] MEDS: METOPROLOL SUCCINATE 50 MG TAB.SR.24H (TOPROL XL) PO SCH (08:38)
[2022-01-16] MEDS: PANTOPRAZOLE SODIUM 40 MG TAB PO SCH (08:38)
[2022-01-16] MEDS: LISINOPRIL 10 MG TABLET (PRINIVIL) PO SCH (08:39)
[2022-01-16] MEDS: CEFTRIAXONE SOD 1 GM/ D5W 50 ML IV SCH ×2 (08:40)
--- NOTE | 2022-01-16 08:41 | NUR ---
Discharge Planning: DCP faxed pt referral to [facility] P#[phone] DCP to follow up Addendum: 01/16/22 at 1015 by Virginia Kc DP [facility] P#[phone] accepted pt to [facility] Addendum: 01/16/22 at 1605 by Virginia Kc DP Family wanted patient referral to [facility] P#[phone] DCP to follow up Disposition 03 Addendum: 01/16/22 at 1639 by Virginia Kc DP DCP arranged transport with [facility] [phone] BLS on Will Call to [facility] P#[phone] Rm 17 pending dc order. Patient packet taken to nurse station CM and nurse aware.
[2022-01-16 10:07] LABS: FOLATE (FOLIC ACID) 15.3 ng/mL (>3.0)
[2022-01-16 11:21] VITALS: BP_SYST 142
[2022-01-16 12:00] VITALS: BP_SYST 136
--- NOTE | 2022-01-16 15:25 | NUR ---
PT ARRIVED TO UNIT VIA BED AT THIS TIME. AAOX4 NAD NOTED. PT ON 3L NC VS STABLE. RT AT BEDSIDE.
--- NOTE | 2022-01-16 15:30 | NUR ---
CM:Informed son Leigh # [phone] who is now refusing the transfer stated that 3 years ago the pt was there and remembering that the facility was not clean, had patients screaming, had homeless staying there. He is requesting [facility] instead. Dr Ly made aware, DCP will send out another referral to [facility] per son request.
[2022-01-16 15:34] VITALS: BP_SYST 136
[2022-01-16 16:00] VITALS: BP_SYST 142
--- NOTE | 2022-01-16 16:15 | NUR ---
PAGED DR. ROSS FOR DISCHARGE ORDER. AWAITING CALL BACK.
--- NOTE | 2022-01-16 17:00 | NUR ---
RECEIVED CALL FROM DR. ROSS. PHONE ORDER RECEIVED TO DISCHARGE PT TO [facility]. STATED TO CONTINUE ALL MEDICATIONS. ORDERS READ BACK AND VERIFIED.INFORMED RN IN CHARGE.
--- NOTE | 2022-01-16 17:06 | NUR ---
REPORT CALLED TO HAYDEE Pierson RN WITH [facility]. ALL QUESTIONS ANSWERED. PROVIDED CALL BACK NUMBER.
--- NOTE | 2022-01-16 17:10 | NUR ---
DR. ROSS ON UNIT. STATED OKAY TO KODI DUNN.
--- NOTE | 2022-01-16 17:15 | NUR ---
PHYSICAL THERAPY CO-SIGN The Physical Therapy Progress Notes documented by Fabricator Foam Rubber have been reviewed. Reviewed/Co-Signed by: Kiki South PT Documentation Done by:KAREEM PAREDES PLANNING FEEDER Addendum: 01/16/22 at 1715 by Kiki South PT Amended: Links added.
--- NOTE | 2022-01-16 18:26 | NUR ---
PER CM DOCUMENTATION PT WILL TRANSFER TO [facility] CLARIFIED WITH CHARGE NURSE. FAMILY NOTIFIED. PROVIDED PHONE NUMBER ROOM NUMBER AND ADDRESS TO SON VIA TELEPHONE. REPORT CALLED TO AHSAN Mosley RN WITH [facility]. ANSWERED ALL QUESTIONS.PROVIDED CALL BACK NUMBER.
--- NOTE | 2022-01-16 18:37 | NUR ---
Called [facility], spoke to Unique. ETA is [phone]
[2022-01-16 18:39] VITALS: BP_SYST 132
--- NOTE | 2022-01-16 20:45 | NUR ---
FAMILY CALLED : CALLED AND TALKED WITH SON ROM [phone], NOTIFIED HIM THAT PT WILL BE TRANSFERING TO [facility] TO NIGHT , AMBULANCE IS HERE TO SURVEY RESEARCH MANAGER , SON AGREED WITH IT .
--- NOTE | 2022-01-16 23:01 | NUR ---
DR ROSS CALLED AND TOLD ME PT SENT WITHOUT THE MEDICATION LIST AND REQUESTED TO FAX IT TO [facility] . AT THE SAME TIME PRIMARY RN GOT CALL FROM STRUCTURAL MILL SUPERVISOR FROM [facility] STAFF AND STATED THE SAME THING AND REQUESTED TO FAX THE MED LIST AND RECEIVED FAX NO [phone] . FAXED MEDICATION LIST TO THAT NO . THEN TO CONFIRM THAT THEY RECEIVED THE MEDICATION LIST , I TALKED TO THE STRUCTURAL MILL SUPERVISOR , AND REQUESTED TO CHECK IT WETHER HE RECEIVED IT . PER HIM HE DIDNT RECEIVE THE FAX , HE ASKED ME WHICH NO I FAXED AND TOLD HIM THAT IT IS [phone] HE PROVIDED , HE SAID HE DONT HAVE ACCESS TO [place] AT THIS TIME AND THE FAX NO HE PROVIDED WAS FOR [place] ,AND REQUESTED TO SEND TO [phone] . PER REQUEST FAXED AGAIN THEMED LIST ON THE NEW NO .
== END 2022-01-16 21:07 | DRG 853 ==
LOC: SED 20:49 → SIC 12-30 02:27 → STU 01-13 09:30
PROVIDERS: ADMIT Family Medicine; ATTEND Family Medicine
PROC: 5A1945Z Respiratory Ventilation, 24-96 Consecutive Hours (ICD-10-PCS; principal; 2021-12-30)
PROC: 5A09357 Assistance with Respiratory Ventilation, Less than 24 Consecutive Hours, Continuous Positive Airway Pressure (ICD-10-PCS; 2021-12-30)
PROC: 0BH17EZ Insertion of Endotracheal Airway into Trachea, Via Natural or Artificial Opening (ICD-10-PCS; 2021-12-30)
PROC: 02H633Z Insertion of Infusion Device into Right Atrium, Percutaneous Approach (ICD-10-PCS; 2021-12-31)
PROC: B548ZZA Ultrasonography of Superior Vena Cava, Guidance (ICD-10-PCS; 2021-12-31)
PROC: 5A1D70Z Performance of Urinary Filtration, Intermittent, Less than 6 Hours Per Day (ICD-10-PCS; 2021-12-31)
PROC: 5A1D70Z Performance of Urinary Filtration, Intermittent, Less than 6 Hours Per Day (ICD-10-PCS; 2022-01-02)
PROC: 0JH606Z Insertion of Pacemaker, Dual Chamber into Chest Subcutaneous Tissue and Fascia, Open Approach (ICD-10-PCS; 2022-01-11)
PROC: 02HK3JZ Insertion of Pacemaker Lead into Right Ventricle, Percutaneous Approach (ICD-10-PCS; 2022-01-11)
PROC: 02H63JZ Insertion of Pacemaker Lead into Right Atrium, Percutaneous Approach (ICD-10-PCS; 2022-01-11)
DX: A41.9 Sepsis, unspecified organism (principal); E11.10 Type 2 diabetes mellitus with ketoacidosis without coma; J96.01 Acute respiratory failure with hypoxia; I46.9 Cardiac arrest, cause unspecified; J18.9 Pneumonia, unspecified organism; I13.0 Hypertensive heart and chronic kidney disease with heart failure and stage 1 through stage 4 chronic kidney disease, or unspecified chronic kidney disease; I44.2 Atrioventricular block, complete; G93.40 Encephalopathy, unspecified; N17.9 Acute kidney failure, unspecified; N39.0 Urinary tract infection, site not specified; E11.22 Type 2 diabetes mellitus with diabetic chronic kidney disease; Z20.822 Contact with and (suspected) exposure to COVID-19; E87.5 Hyperkalemia; E11.40 Type 2 diabetes mellitus with diabetic neuropathy, unspecified; D63.8 Anemia in other chronic diseases classified elsewhere; E87.6 Hypokalemia; E83.51 Hypocalcemia; N18.9 Chronic kidney disease, unspecified; I50.9 Heart failure, unspecified; Z88.6 Allergy status to analgesic agent; Z88.0 Allergy status to penicillin; Z79.899 Other long term (current) drug therapy; Z95.0 Presence of cardiac pacemaker; Z79.4 Long term (current) use of insulin
CPT/HCPCS: 36415; 36600; 71045; 76000; 80048; 80053; 80061; 80074; 81000; 82009; 82607; 82728; 82746; 82803-TC; 82962; 83036; 83540; 83550; 83690; 83735; 83880; 84100; 84443; 84478; 84484; 85025; 85610-TC; 85730-TC; 87040; 87070-TC; 87081; 87205-TC; 90935; 90937; 92610-GN; 93005; 93306; 94002; 94003; 94640; 94660; 94760; 96365; 96367; 96375; 97110-GP; 97116-GP; 97530-GP; 99285; C1786; C1898; C9113; G0378; J0171; J0330; J0360; J0456; J0610; J0696; J1100; J1265; J1450; J1644; J1650; J1815; J1940; J1956; J2001; J2250; J2270; J2405; J2704; J2765; J3010; J3370; J3475; J3480; J3490; J7030; J7050; J7060; J7131; J7612; Q0144